=== PATIENT | female | born 1950 | race Caucasian/White ===

== ENCOUNTER 2017-11-16 08:37 | Emergency (ER) | payer BC ==
[~2017-11-16] VITALS: Ht 160 cm; Wt 68.9 kg
[~2017-11-16 08:37] MED LIST: CITALOPRAM HBR20 MG PO; LISINOPRIL-HCT1 EAC1 PO; PREMARIN0.9 MG PO; VASOTEC5 M1 PO
--- NOTE | 2017-11-16 09:53 | Diagnostic Imaging Report ---
RIGHT BONE XRAY - 3 VIEWS HISTORY: \S\DROPPED TV ON HAND YESTERDAY \S\[id number] \S\[id number] COMPARISON: None available. FINDINGS: Bones: No acute displaced fracture. Diffuse bone demineralization. Osseous alignment is within normal limits. Joints: The joint spaces are well-maintained. Soft tissues: The soft tissues appear unremarkable. IMPRESSION: No acute radiographic abnormality. Signed by: Dr. Flaca Quezada M.D. on 11/16/2017 9:49 AM
== END 2017-11-16 10:26 | disposition home or self-care (01) ==
LOC: ER 08:37
DX: S63.632A Sprain of interphalangeal joint of right middle finger, initial encounter (principal); S63.634A Sprain of interphalangeal joint of right ring finger, initial encounter; S63.636A Sprain of interphalangeal joint of right little finger, initial encounter; W22.8XXA Striking against or struck by other objects, initial encounter; Y92.008 Other place in unspecified non-institutional (private) residence as the place of occurrence of the external cause
CPT/HCPCS: 99283

== ENCOUNTER 2019-07-07 14:19 | Emergency (ER) | payer BC ==
[~2019-07-07] VITALS: Ht 160 cm; Wt 68.9 kg
[~2019-07-07 14:19] MED LIST changes: +ASPIR 8181 MG PO
[2019-07-07] MEDS ORDERED: SODIUM CHLORIDE 0.9% 1000ML 1,000 ML IV STA ×2 (14:20)
[2019-07-07] MEDS ORDERED: METOPROLOL TARTRATE 50 MG TAB PO ONE (14:20)
[2019-07-07] MEDS ORDERED: METOPROLOL TARTRATE INJ 1 MG/ML VIAL IV ONE (14:30)
[2019-07-07 14:31] LABS: BASOPHILS # (AUTO) 0.1 (0.0-0.1); BASOPHILS % 0.4 % (0.0-1.0); EOSINOPHILS # (AUTO) 0.1 (0.0-0.4); EOSINOPHILS % 0.8 % (0.0-6.0); HEMATOCRIT 40.2 % (34.2-44.1); LYMPHOCYTES # (AUTO) 3.9 (1.0-3.2); LYMPHOCYTES % 34.7 % (18.0-39.1); MEAN CORPUSCULAR HEMOGLOBIN 28.6 pg (28-32); MEAN CORPUSCULAR HGB CONC 32.3 g/dL (31-35); MEAN CORPUSCULAR VOLUME 88.5 fL (81-99); MONOCYTES # (AUTO) 0.5 (0.2-0.8); MONOCYTES % 4.6 % (4.4-11.3); NEUTROPHILS # (AUTO) 6.6 (2.1-6.9); NEUTROPHILS % 59.1 % (38.7-80.0); PLATELET COUNT 313 x10e3/uL (140-360); RED BLOOD COUNT 4.54 x10e6/uL (3.6-5.1)
[2019-07-07] MEDS ORDERED: ASPIRIN 81 MG CHEW TAB PO ONE (14:45)
[2019-07-07 14:46] LABS: INR 0.82; PARTIAL THROMBOPLASTIN TIME 25.2 seconds (23.8-35.5); PROTHROMBIN TIME 11.8 seconds (11.9-14.5)
[2019-07-07 14:53] LABS: ALANINE AMINOTRANSFERASE 12 IU/L (0-55); ALBUMIN 3.4 g/dL (3.5-5.0); ALBUMIN/GLOBULIN RATIO 0.8 (0.8-2.0); ALKALINE PHOSPHATASE 72 IU/L (40-150); ANION GAP 17.6 mmol/L (8-16); BLOOD UREA NITROGEN 27 mg/dL (7-26); BUN/CREATININE RATIO 20 (6-25); CALCIUM 9.6 mg/dL (8.4-10.2); CARBON DIOXIDE 24 mmol/L (22-29); CHLORIDE 101 mmol/L (98-107); CREATINE KINASE 57 IU/L (29-168); CREATININE, SERUM 1.33 mg/dL (0.57-1.11); EST GLOMERULAR FILTRATION RATE 39 ML/MIN (60-); GLUCOSE 143 mg/dL (74-118); MAGNESIUM 1.7 MG/DL (1.3-2.1); POTASSIUM 3.6 mmol/L (3.5-5.1); SODIUM 139 mmol/L (136-145)
--- NOTE | 2019-07-07 15:11 | Diagnostic Imaging Report ---
Chest, 1 view, 07/07/2019. History: Tachycardia. Comparison: 06/20/2018. Findings: The cardiomediastinal silhouette and pulmonary vasculature are within normal limits for a portable exam. Calcified right hilar lymph node is present. There is no focal consolidation or pleural effusion. Prominence right epicardial fat-pad is noted. There are no acute osseous or soft tissue abnormalities. Impression: No acute cardiopulmonary abnormality. Signed by: Kaushik Veras on 07/07/2019 3:07 PM
[2019-07-07 15:13] LABS: THYROID STIMULATING HORMONE 4.807 uIU/mL (0.350-4.940)
[2019-07-07 15:54] LABS: BILIRUBIN,URINE NEGATIVE (NEGATIVE); CLARITY,URINE SL CLOUDY (CLEAR); COLOR,URINE YELLOW (YELLOW); KETONES,URINE NEGATIVE (NEGATIVE); LEUKOCYTE ESTERASE ,URINE NEGATIVE (NEGATIVE); NITRITE,URINE NEGATIVE (NEGATIVE); PROTEIN,URINE DIPSTICK NEGATIVE (NEGATIVE); URINE UROBILINOGEN 0.2 mg/dL (0.2 - 1)
--- NOTE | 2019-07-07 16:06 | Diagnostic Imaging Report ---
CT of the abdomen and pelvis, without contrast, 07/07/2019. History: History of renal cyst. Comparison: CT chest 06/20/2018. Technique: Multidetector CT scanning of the abdomen and pelvis was performed from the level of the lung bases to the inferior pubic rami without intravenous or oral contrast. Coronal and sagittal multiplanar reformations were obtained. RADIATION DOSE: Total DLP: 314 mGy*cm Dose modulation, iterative reconstruction, and/or weight based adjustment of the mA/kV was utilized to reduce the radiation dose to as low as reasonably achievable. Discussion: Examination is limited without contrast. Lung bases: Calcified granuloma is present in the left lower lobe. Abdomen: A 8.1 cm simple cyst is seen arising from the upper pole of the left kidney. Left kidney is otherwise unremarkable. The liver, gallbladder, biliary tree, spleen, pancreas, adrenal glands, and right kidney are unremarkable. The abdominal aorta is within normal limits. There is no bowel dilatation. Scattered colonic diverticuli are present without evidence of adjacent inflammation. There is no evidence of adenopathy or free fluid. Pelvis: The bladder is are unremarkable. The uterus and adnexa are not visualized. Cavitations are present within the pelvis. There is no evidence of free fluid or adenopathy. Bones and soft tissues: Degenerative changes are present throughout the lumbar spine without evidence of lytic or sclerotic lesion. IMPRESSION: 1. Large simple left renal cyst. 2. Colonic diverticulosis without evidence of diverticulitis. 3. Status post hysterectomy. Signed by: Kaushik Veras on 07/07/2019 4:03 PM
[2019-07-07 16:11] LABS: EPITHELIAL CELLS,URINE RARE /LPF
[2019-07-07 16:28] VITALS: BP 135/75
== END 2019-07-07 16:34 | disposition home or self-care (01) ==
LOC: ER 14:19
DX: I47.1 Supraventricular tachycardia (principal); N28.1 Cyst of kidney, acquired; I10 Essential (primary) hypertension; Z79.82 Long term (current) use of aspirin
CPT/HCPCS: 36415; 71045; 74176; 80053; 81001; 82550; 82553; 83735; 83880; 84443; 84484; 85025; 85610; 85730; 87086; 93005; 99284; J7030

== ENCOUNTER 2020-06-07 09:53 | Observation (INO) | payer BC, MEDICARE, OTHER ==
[~2020-06-07] VITALS: Ht 160 cm; Wt 68.9 kg
--- NOTE | 2020-06-07 10:47 | Emergency Department Note ---
History of Present Illnes History of Present Illness Chief Complaint: Chest Pain History of Present Illness This is a 70 year old female Chief Complaint Comment SHARP, CONSTANT C HEST PAIN OVER LEFT CHEST X 45 MINUTES. 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: Patient Arrival Mode: Car Onset (how long ago): day(s) (1) Location: chest Quality: dull Radiation: Denies non-radiation, Denies back, Denies neck, Denies extremity, Denies abdomen, Denies periumbilical, Denies flank, Denies proximal, Denies distal, Denies other Severity: mild Onset quality: gradual Duration (how long): day(s) (1) Timing of current episode: intermittent Progression: waxing and waning Chronicity: new Context: Denies recent illness, Denies recent surgery, Denies recent immobilization, Denies recent travel, Denies trauma/injury, Denies new medications, Denies hx of DVT/PE, Denies non-compliance w/ medications, Denies other Relieving factors: none Exacerbating factors: none Associated symptoms: Denies denies other symptoms, Denies confusion, Denies chest pain, Denies cough, Denies diaphoresis, Denies fever/chills, Denies headaches, Denies loss of appetite, Denies malaise, Denies nausea/vomiting, Denies rash, Denies seizure, Denies shortness of breath, Denies syncope, Denies weakness, Denies other Treatments prior to arrival: none Past Medical/Family History Physician Review I have reviewed the patient's past medical and family history. Any updates have been documented here. Past Medical History Recent Fever: No Clinical Suspicion of Infectio: No New/Unexplained Change in Ment: No Past Medical History: Hypertension, [place] Other Medical History: DIVERTICULITIS Past Surgical History: Colon Resection Other Surgery: BOWEL RESECTION/DIVERTICULITIS LEFT HAND SURGERY Lt heart cath w/out intervention Social History Smoking Cessation: Never Smoker Alcohol Use: None Any Illegal Drug Use: No Other Last Tetanus: UNK Any Pre-Existing Lines (PICC,: No Review of Systems Review of Systems Constitutional: Reports no symptoms EENTM: Reports no symptoms; Denies as per HPI, Denies eye pain, Denies blurred vision, Denies tearing, Denies double vision, Denies ear pain, Denies ear discharge, Denies nose pain, Denies nose congestion, Denies throat pain, Denies throat swelling, Denies mouth pain, Denies mouth swelling, Denies other Cardiovascular: Reports no symptoms Respiratory: Reports no symptoms; Denies as per HPI, Denies change in phlegm color, Denies chest congestion, Denies cough, Denies hemoptysis, Denies excessive phlegm production, Denies pain on inspiration, Denies pain with cough, Denies dyspnea, Denies dyspnea on exertion, Denies snoring, Denies stridor, Denies wheezing, Denies other Gastrointestinal: Reports no symptoms; Denies as per HPI, Denies abdominal pain, Denies constipation, Denies diarrhea, Denies nausea, Denies vomiting, Denies other Genitourinary: Reports no symptoms; Denies as per HPI, Denies discharge, Denies dysuria, Denies frequency, Denies hematuria, Denies pain, Denies other Musculoskeletal: Reports no symptoms; Denies as per HPI, Denies back pain, Denies gout, Denies joint pain, Denies joint swelling, Denies muscle pain, Denies muscle stiffness, Denies neck pain, Denies other Integumentary: Reports no symptoms; Denies as per HPI, Denies change in color, Denies change in hair/nails, Denies dryness, Denies lesions, Denies lumps, Denies rash, Denies poor turgor, Denies ecchymosis, Denies other Neurological: Reports no symptoms Psychological: Reports no symptoms; Denies as per HPI, Denies anxiety, Denies depressed, Denies emotional pr oblems, Denies other Endocrine: Reports no symptoms; Denies as per HPI, Denies excessive sweating, Denies flushing, Denies intolerance to cold, Denies intolerance to heat, Denies increased hunger, Denies increased thirst, Denies increased urination, Denies unexplained weight gain, Denies unexplained weight loss, Denies other Hematological/Lymphatic: Reports no symptoms Physical Exam Related Data Allergies: Coded Allergies: codeine (Verified Allergy, Mild, 06/20/18) promethazine (Verified Allergy, Mild, 06/20/18) Triage Vital Signs Vital Signs Date Time Temp Pulse Resp B/P (MAP) Pulse Ox O2 Delivery O2 Flow Rate FiO2 06/07/20 10:05 97.2 72 16 172/73 95 Room Air Vital signs reviewed: Yes Physical Exam CONSTITUTIONAL Constitutional: Present well-developed, Present well-nourished HENT HENT: Present normocephalic, Present atraumatic, Present oropharynx clear/moist, Present nose normal HENT L/R: Present left ext ear normal, Present right ext ear normal EYES Eyes: Reports PERRL, Reports conjunctivae normal NECK Neck: Present ROM normal PULMONARY Pulmonary: Present effort normal, Present breath sounds normal CARDIOVASCULAR Cardiovascular: Present regular rhythm, Present heart sounds normal, Present capillary refill normal, Present normal rate GASTROINTESTINAL Abdominal: Present soft, Present nontender, Present bowel sounds normal GENITOURINARY Genitourinary: Present exam deferred SKIN Skin: Present warm, Present dry MUSCULOSKELETAL Musculoskeletal: Present ROM normal NEUROLOGICAL Neurological: Present alert, Present oriented x 3, Present no gross motor or sensory deficits PSYCHOLOGICAL Psychological: Present mood/affect normal, Present judgement normal Results Laboratory Lab results reviewed: Yes Imaging Imaging results reviewed: Yes Procedures 12 Lead ECG Interpretation ECG Interpretation : ECG: ECG 1 Accounting Supervisor: Interpreted by ED physician Date: Jun 07, 2020 Time: 09:53 Prior ECG tracings: not available for review Rhythm: sinus rhythm Rate: normal BPM: 73 QRS axis: normal ST segments normal: Yes T wave inversion: II, III, aVF Clinical Impression: abnormal ECG Assessment & Plan Medical Decision Making MDM cad angina acs Reassessment Reassessment time: 10:46 Reassessment better Assessment & Plan Final Impression: (1) Precordial pain (2) Chest pain Depart Disposition: ADMITTED Last Vital Signs Date Time Temp Pulse Resp B/P (MAP) Pulse Ox O2 Delivery O2 Flow Rate FiO2 06/07/20 10:05 97.2 72 16 172/73 95 Room Air Home Meds Reported Medications Aspirin (ASPIR 81) 81 Mg Tablet., PO DAILY 06/21/18 Estrogens, Conjugated (PREMARIN) 0.9 Mg Tablet, 0.9 MG PO HS 01/10/14 Lisinopril/Hydrochlorothiazide (LISINOPRIL-HCTZ 20-25 MG TAB) 1 Each Tablet, 0.5 TAB PO HS 01/10/14 DENISE SCOTT MD Jun 07, 2020 10:47
--- NOTE | 2020-06-07 10:49 | Diagnostic Imaging Report ---
EXAM: CXR 1 VIEW - [facility] DATE: 06/07/2020 10:24 AM INDICATION: Chest pain COMPARISON: 07/07/2019 FINDINGS: The trachea is midline. The lungs are symmetrically expanded without evidence for large focal consolidation, pneumothorax, or significant pleural effusion. The cardiomediastinal silhouette and pulmonary vasculature are within normal limits. No acute osseous abnormality is identified. The surrounding soft tissues are unremarkable. IMPRESSION: No acute cardiopulmonary process identified. Signed by: Dr. Geovanny Kelley MD on 06/07/2020 10:46 AM
[2020-06-07] MEDS ORDERED: ONDANSETRON HCL INJ 2MG/ML 2ML 2 MG/ML VIAL IV PRN (11:00)
[2020-06-07] MEDS ORDERED: ASPIRIN 81 MG CHEW TAB PO ONE (11:00)
--- NOTE | 2020-06-07 11:17 | NUR ---
[facility] CALLED TO TRANSPORT TO [id number] EMS ETA 30-45MIN
[2020-06-07] MEDS ORDERED: ACETAMINOPHEN 325 MG TAB PO PRN (13:00)
[2020-06-07] MEDS ORDERED: SODIUM CHLORIDE 0.9% 1000ML 1,000 ML IV ONE (13:30)
[2020-06-07] MEDS ORDERED: SODIUM CHLORIDE 0.9% 100 ML ONE (13:47)
[2020-06-07] MEDS ORDERED: IOPAMIDOL 370 MG/ML 200 ML INFUS..BTL INJ ONE (13:47)
--- NOTE | 2020-06-07 14:28 | NUR ---
Received patient from [facility] via EMS on a stretcher at 1220. Received report from SAIRA Epperson at 1222. Patient oriented to room, procedures, and plan of care. Patient IV in right AC 20g. Patient has no pain. Patient has significant other at bedside. Patient was seen by Dr. Bains who ordered labs and scans. Patient assessed and has no other issues or complaints.
[2020-06-07 14:32] LABS: CREATINE KINASE 47 IU/L (29-168)
[2020-06-07] MEDS ORDERED: ESTRADIOL1 MG PO (14:37)
[2020-06-07 14:52] LABS: THYROID STIMULATING HORMONE 4.034 uIU/mL (0.350-4.940)
[2020-06-07] MEDS ORDERED: ASPIRIN 81 MG CHEW TAB ONE (15:03)
--- NOTE | 2020-06-07 15:22 | Diagnostic Imaging Report ---
CTA of the chest History: Chest pain. Comparison: CT chest with contrast from 06/20/2018. Technique: Multidetector CT scanning of the chest was performed from the level of the apices to the upper abdomen before and after intravenous administration of intravenous contrast according to the CTA protocol. Coronal and sagittal multiplanar reformations as well as three-dimensional reformations of the aorta were obtained. RADIATION DOSE: Total DLP: 487.64 mGy*cm Dose modulation, iterative reconstruction, and/or weight based adjustment of the mA/kV was utilized to reduce the radiation dose to as low as reasonably achievable. FINDINGS: Vascular: The thoracic aorta is normal in course and caliber without evidence for acute pathology such as dissection, intramural hematoma, or contained rupture. Arch vessel branching pattern is conventional. The origins of the brachiocephalic, left common carotid, and left subclavian arteries are widely patent. The origins of the vertebral arteries off the subclavian arteries are patent. The main pulmonary artery is normal in caliber and distributes normally. The visualized abdominal aorta and branch vessels are unremarkable. Tipple Engineer maximum AP dimensions of the thoracic aorta are as follows: -2.9 cm at the aortic annulus. -3.4 cm within the proximal ascending thoracic aorta. -3.0 cm within the distal ascending thoracic aorta. - 2.6 cm within the proximal descending thoracic aorta. - 2.5 cm within the mid descending thoracic aorta. - 2.3 cm at the level of the diaphragmatic hiatus. Nonvascular: The thyroid and remaining midline structures within the base of the neck demonstrate no significant abnormalities. The heart is not enlarged. No abnormal pericardial fluid is present. Calcified mediastinal and hilar lymph nodes are noted suggestive of prior granulomatous disease. There is no abnormal axillary, mediastinal, or hilar lymph node enlargement. The trachea and proximal airways are patent. Stable calcified granulomas noted within the lung parenchyma bilaterally. There is no evidence for consolidation, pneumothorax, mass, suspicious nodule, or pleural effusion. Limited views of the upper abdominal contents demonstrate partially visualized left renal cyst, bettered evaluated on prior CT abdomen/pelvis examinations. The osseous structures demonstrate no evidence for acute fracture or destructive process. The extrathoracic soft tissues are unremarkable. IMPRESSION: Unremarkable CTA of the chest without evidence for aortic dissection, aneurysm, or other acute aortic pathology. No other acute intrathoracic process identified. Evidence of prior granulomatous disease. Signed by: Dr. Geovanny Kelley MD on 06/07/2020 3:19 PM
[2020-06-07 16:26] VITALS: BP 140/66
--- NOTE | 2020-06-07 18:09 | Consultation ---
DATE OF CONSULTATION: 06/07/2020 Cardiology consultation REASON FOR CONSULTATION: Chest pain. HISTORY OF PRESENT ILLNESS: Ms. Toribio is a 70-year-old lady, well known to us with past medical history of prior SVT, status post SVT ablation six months ago with and also prior history of takotsubo cardiomyopathy x2 before in the past. She has had cardiac catheterizations in the past showing angiographically normal coronary arteries. She was in her usual state of health up until earlier today. She developed an episode of chest pain. She describes it as a left parasternal chest discomfort quarter-size radiating straight to the back and in between the shoulder blades. She describes the pain as sharp, relentless, constant, no waxing and waning features, no alleviating factors. She felt overall malaise and after it lasting for an hour and a half, she became concerned and decided to come to the emergency room for further care and management. In the emergency room, her EKG reveals sinus rhythm, delayed R to S wave transition, but no ST-T wave changes concerning for ischemia. Her pain is largely subsided, but still has a low level of discomfort. The patient denies any shortness of breath. She denies any pleuritic component to the chest pain. She denies any wheezing or coughing. She had a little bit of diaphoresis earlier. We ended up reviewing the chest x-ray which revealed normal extra x-ray. Cardiac biomarkers at the freestanding ER are strongly negative x1. Overall, the patient reports three months ago she had an episode of two days of low-grade fevers, body aches and some nausea and vomiting, and at that time she was tested for COVID infection and was negative. She denies any recurrence of those types of complaints. At baseline she is able to walk a mile a day. It has not been changing much, but on occasion does have exertional dyspnea. Long discussion and visit today discussing of various differential diagnosis. PAST MEDICAL HISTORY: 1. History of takotsubo cardiomyopathy x2. 2. Prior history of cardiac catheterizations which have been normal, most recently 2013. 3. History of SVT, status post SVT ablation in 2019 by . 4. Prior history of endometriosis. PAST SURGICAL HISTORY: 1. History of hysterectomy. 2. History of left knee surgery. FAMILY HISTORY: There are several family members with history of coronary artery disease. SOCIAL HISTORY: She is a nurse. She is a nonsmoker. Denies any alcohol or illicit drug use. ALLERGIES: CODEINE AND PROMETHAZINE. CURRENT MEDICATIONS: 1. Aspirin 81 mg daily. 2. Lisinopril/HCTZ 20/25 mg half a tablet daily, however, does report in recent history has decreased. 3. Estrogen 0.9 mg p.o. at bedtime. REVIEW OF SYSTEMS: GENERAL: Denies any fevers, chills, or any weight changes. HEENT: No headaches, visual complaints, sore throat, or stuffy nose. RESPIRATORY: Denies any pleuritic component to the chest pain, but does have chest pain as noted as per HPI. Has no dyspnea at the present time. CARDIOVASCULAR: As per HPI. Denies any subjective palpitations, syncope, or near syncope. GI: Denies any abdominal pain, bright red blood per rectum, melena, hematemesis, nausea, or vomiting. : Denies any dysuria, pyuria, or change in urine frequency. MUSCULOSKELETAL: Denies any body aches, muscle pains, or weakness. ENDOCRINE: Denies any heat or cold intolerance. NEUROLOGIC: Denies any focal weakness, numbness, tingling, seizures, headache, TIA or stroke. Remainder review of systems negative otherwise mentioned. PHYSICAL EXAMINATION: VITAL SIGNS: Height of 63 inches, weight of 152 pounds. BMI is 26.9, temperature of 97.2, pulse of 59, respiratory rate of 16, blood pressure 152/69, and O2 saturation 97% on room air. GENERAL: This is a well-nourished, well-developed lady, who is currently in no apparent distress. HEENT: Normocephalic and atraumatic. Pupils are equal, round, reactive to light. Extraocular motors are intact. Oropharynx is clear. NECK: No elevation in jugular venous pulsation. No carotid bruits. CARDIOVASCULAR: Regular rate and rhythm. Normal S1, S2. 1/6 systolic murmur at the left lower sternal border. LUNGS: Clear to auscultation bilaterally with good air entry. There is no chest wall tenderness to palpation. ABDOMEN: Soft, nontender, nondistended. Normoactive bowel sounds. No hepatosplenomegaly. BACK: No costovertebral angle tenderness. EXTREMITIES: Warm with 1 to 2+ bilateral femoral pulses, 1 to 2+ bilateral pedal pulses and radial pulses. No edema. NEUROLOGIC: Cranial nerves II through XII are intact. Strength grossly nonfocal. PSYCH: Normal fluent speech, appropriate affect. No anxiety or delusions. LABORATORY DATA: Sodium 139, potassium 3.6, chloride 101, bicarb 24, BUN 20, creatinine 0.9, glucose of 101, calcium of 9.8, AST 16, ALT 31, alkaline phosphatase 67, total bilirubin 0.7, total protein 7.1, and albumin 4.1. Troponin is less than 0.05. CK-MB is 1.3. Chest x-ray is unremarkable. EKG reveals sinus rhythm, delayed R-S wave transition and no ST-T wave changes concerning for ischemia. DIAGNOSES: 1. Chest pain with largely atypical feature for angina in nature. 2. Hypertension. 3. History of takotsubo cardiomyopathy. PLAN/RECOMMENDATIONS: 1. From a cardiovascular standpoint, we will continue low dose aspirin therapy. 2. In light of her potential coronavirus disease infection in the past back about three months ago this made predispose her to hypercoagulable state. Therefore, we will take ordering a CTA of the chest for further evaluation. This is beneficial as we can rule out aortic dissection and PE, which are the most highest two things in the differential diagnosis and the differential could be pleurisy or musculoskeletal chest pain. 3. Aggressive risk factor modification medical therapy. 4. We will monitor on telemetry. 5. We will check echo and to evaluate her left ventricular function as she has had previous takotsubo events in the past with very weird presentations. We will make sure this is not a manifestation of such. 6. We will cycle at least one more set of cardiac enzymes to rule out NH. MD MYRIAM Singleton/CHAYAL /[id number]
--- NOTE | 2020-06-07 18:55 | NUR ---
Bedside report received from morning nurse. Pt alert and oriented to name, lying in bed HIB 60 degrees, denies pain at this time. Call light within reach. Bed low and locked. Pt goal is to rest, refuses midnight vitals.
[2020-06-07 20:00] VITALS: BP 117/66
[2020-06-07 21:40] LABS: CREATINE KINASE MB 1.2 ng/mL (0-5.0)
[2020-06-08 04:00] VITALS: BP 135/57
[2020-06-08] MEDS ORDERED: KETOROLAC TROMETHAMINE 30 MG/ML VIAL IV STA (05:13)
[2020-06-08 05:14] VITALS: BP 135/57
[2020-06-08 05:28] LABS: BASOPHILS # (AUTO) 0.1 (0.0-0.1); BASOPHILS % 1.4 % (0.0-1.0); EOSINOPHILS # (AUTO) 0.2 (0.0-0.4); EOSINOPHILS % 4.3 % (0.0-6.0); HEMATOCRIT 35.9 % (34.2-44.1); HEMOGLOBIN 11.6 g/dL (12.0-16.0); LYMPHOCYTES # (AUTO) 1.8 (1.0-3.2); LYMPHOCYTES % 42.7 % (18.0-39.1); MEAN CORPUSCULAR HEMOGLOBIN 28.6 pg (28-32); MEAN CORPUSCULAR HGB CONC 32.3 g/dL (31-35); MEAN CORPUSCULAR VOLUME 88.4 fL (81-99); MONOCYTES # (AUTO) 0.4 (0.2-0.8); MONOCYTES % 9.2 % (4.4-11.3); NEUTROPHILS # (AUTO) 1.8 (2.1-6.9); NEUTROPHILS % 42.2 % (38.7-80.0); PLATELET COUNT 208 x10e3/uL (140-360); RED BLOOD COUNT 4.06 x10e6/uL (3.6-5.1); RED CELL DISTRIBUTION WIDTH 13.2 % (11.7-14.4)
[2020-06-08 06:03] LABS: BLOOD UREA NITROGEN 17 mg/dL (7-26); BUN/CREATININE RATIO 21 (6-25); CALCIUM 8.7 mg/dL (8.4-10.2); CARBON DIOXIDE 23 mmol/L (22-29); CHLORIDE 108 mmol/L (98-107); CREATININE, SERUM 0.82 mg/dL (0.57-1.11); EST GLOMERULAR FILTRATION RATE > 60 ML/MIN (60-); GLUCOSE 85 mg/dL (74-118); SODIUM 138 mmol/L (136-145)
[2020-06-08 06:19] LABS: CREATINE KINASE 50 IU/L (29-168)
[2020-06-08 06:53] LABS: CHOL/HDL RATIO 2.8 (3.0-3.6); MAGNESIUM 1.8 MG/DL (1.3-2.1)
--- NOTE | 2020-06-08 08:00 | NUR ---
ASSUMED CARE. AAOX3. ACYANOTIC. PATIENT RESTING IN BED WITH HOB ELEVATED. NO DISTRESS NOTED. CALL LIGHT IN REACH. SIDE RAILS UP X2. BED LOW AND LOCKED. PATIENT DENIES PAIN AT THIS TIME.
[2020-06-08 08:38] VITALS: BP 133/69
[2020-06-08] MEDS ORDERED: ASPIRIN 325 MG TAB EC PO SCH (09:00)
[2020-06-08 09:53] VITALS: BP 133/69
[2020-06-08] MEDS ORDERED: ONDANSETRON HCL 4 MG ORAL DISINTEGRATING TAB PO PRN (11:45)
--- NOTE | 2020-06-09 09:59 | Discharge Summary ---
DISCHARGE DIAGNOSES: 1. Chest pain, rule out myocardial infarction. 2. Hypertension. HISTORY OF PRESENT ILLNESS: The patient is a lady, who presented with left-sided chest pain only when lying on the left lateral decubitus position, but since she has a history of heart disease, she presented to the emergency room, where she did rule out for AR by enzymes, EKGs, and cardiac echo was unremarkable. She was seen by Dr. Bains and due to the positional component Toradol, which completely resolved her pain. Therefore, inflammatory response at that point since her cardiac workup was negative and she felt great she wanted to go home. So, the patient was discharged home to follow up with me in 1 to 2 weeks. Please see hospital chart for full details. MD GIULIANO Fontenot/TELLO /[id number]
--- OUTSIDE RECORDS SUMMARY | 2020-06-15 17:24 | XMS REPORT | Continuity of Care Document ---
Author Author [facility] t Organization [facility] Address [address] [place] [address] Phone Unavailable Care Team Providers Care Planning Coordinator Name Role Phone HUYEN MURO, MD GARCIA PCP RADHA MATSON Attphys Unavailable YOLI ALVARENGA Attphys Unavailable Loi SHELTON Attphys Unavailable Betty RAE Attphys Unavailable RADHA MATSON Admphys Unavailable Loi SHELTON Admphys Unavailable Payers Payer Name Policy Type Policy Number Effective Date Expiration Date Loi Beyer [facility] [id number] 2013 [facility] [id number] 2013 00:00:00 [facility] Problems Condition Name Condition Details Condition Category Status Onset Date Resolution Date Last Treatment Date Treating Clinician Comments Source Chest pain Chest pain Problem Active [facility] Precordial pain Problem Active [facility] Allergies, Adverse Reactions, Alerts Allergy Name Allergy Type Status Severity Reaction(s) Onset Date Inacti ve Date Treating Clinician Comments Source No Known Allergies DA Active U 2019-08-12 00:00:00 [facility] Codeine Allergy to substance Active Mild 2018-06-20 00:00:00 [facility] Promethazine Allergy to substance Active Mild 2018-06-20 00:00:0 0 [facility] No Known Contrast Allergies DA Active U 2003-10-04 00:00: 00 [facility] No Known Drug Allergies DA Active U 2003-10-04 00:00:00 [facility] No Known Food Allergies DA Active U 2003-10-04 00:00:00 [facility] No Known Other Allergies DA Active U 2003-10-04 00:00:00 [facility] Social History Social Habit Start Date Stop Date Quantity Comments Source Sex Assigned At 1950 00:00:00 1950 00[birth year]:00 Female [facility] Medications Ordered Medication Name Filled Medication Name Start Date Stop Da te Current Medication? Ordering Clinician Indication Dosage Frequency Signature (SIG) Comments Components Source Estradiol Estradiol Yes 1 Daily [facility] Aspirin (Aspir 81) 81 Mg TABLET. Aspirin (Aspir 81) 81 Mg VANDANA ET 2020-06-07 00:00:00 No Daily [facility] Estrogens, Conjugated (Premarin) 0.9 Mg TABLET Estroge ns, Conjugated (Premarin) 0.9 Mg TABLET 2020-06-07 00:00:00 No .9 Bedtime [facility] Lisinopril/Hydrochlorothiazide (Lisinopril-Hctz 20-25 Mg Tab) 1 Each TABLET Lisinopril/Hydrochlorothiazide (Lisinopril-Hctz 20-25 Mg Tab) 1 Each TABLET 2020-06-07 00:00:00 No .5 Bedtime [facility] Citalopram Hydrobromide (Citalopram Hbr) 20 Mg TABLET Citalopram Hydrobromide (Citalopram Hbr) 20 Mg TABLET 2018-06-20 00:00:00 No 20 Daily [facility] Enalapril Maleate (Vasotec) 5 Mg TABLET Enalapril Maleate (V asotec) 5 Mg TABLET 2018-06-20 00:00:00 No 5 Daily [facility] Vital Signs Vital Name Observation Time Observation Value Comments Source Body Temperature 2020-06-08 10:53:00 97.9 [degF] [facility] Heart Rate 2020-06-08 10:53:00 66 /min [facility] Respiratory rate 2020-06-08 10:53:00 18 /min [facility] BP Systolic 2020-06-08 10:53:00 133 mm[Hg] [facility] BP Diastolic 2020-06-08 10:53:00 69 mm[Hg] [facility] Oxygen saturation by Pulse oximetry 2020-06-08 10:53:00 100 /min [facility] BMI (Body Mass Index) 2020-06-07 13:26:00 26.9 kg/m2 [facility] Weight 2020-06-07 11:05:00 152 [lb_av] [facility] Procedures Procedure Date / Time Performed Performing Clinician [facility] donta CT angiography of chest 2020-06-07 00:00:00 [facility] Plan of Care Planned Activity Planned Date Details Comments Source Instructions How to Take Your Blood Pressure [facility] Instructions Chest Pain - Noncardiac [facility] Instructions Chest Pain - Chest Wall [facility] Instructions Cardiac Disease Risk Factors [facility] Encounters Start Date/Time End Date/Time [facility] Source 2020-06-07 11:51:00 2020-06-08 13:17:00 Discharged Inpatient (obs) 1 RADHA MATSON [facility] [id number] [facility] 2019-07-07 14:19:00 2019-07-07 16:34:00 Departed Emergency Room 1 YOLI ALVARENGA [facility] [id number] [facility] 2017-11-16 08:37:00 2017-11-16 10:26:00 Departed Emergency Room ER KYRAASHLEY [facility] [id number] [facility] Results Test Description Test Time Test Comments Results Result Comments Source Blood leukocytes automated count (number/volume) 2020-06-08 06:22:00 Test Item White Blood Count (test code = 6690-2) 4.15 10*3/uL 4.8-10.8 [facility] automated count (number/volume)2020-06-08 06:22:00* Test Item Value Reference Range Interpretation Comments Red Blood Count (test code = 789-8) 4.06 10*6/mL 3.6-5.1 [facility] hemoglobin measurement (moles/volume)2020-06-08 06:22:00* Test Item Value Reference Range Interpretation Comments Hemoglobin (test code = 32328-3) 11.6 g/dL 12.0-16.0 [facility] blood hematocrit (volume fraction)2020-06-08 06:22:00* Test Item Value Reference Range Interpretation Comments Hematocrit (test code = 4544-3) 35.9 % 34.2-44.1 [facility] erythrocyte mean corpuscular [id number] 06:22:00* Test Item Value Reference Range Interpretation Comments Mean Corpuscular Volume (test code = 787-2) 88.4 81-99 [facility] erythrocyte mean corpuscular hemoglobin (mass per erythrocyte)2020-06-08 06:22:00* Test Item Value Reference Range Interpretation Comments Mean Corpuscular Hemoglobin (test code = 785-6) 28.6 pg 28-32 [facility] CampusAutom[facility] erythrocyte mean corpuscular hemoglobin concentration measurement (mass/volume)2020-06-08 06:22:00* Test Item Value Reference Range Interpretation Comments Mean Corpuscular Hemoglobin Concent (test code = 786-4) 32.3 g/dL 31-35 [facility] CampusRDW [id number]-[id number] 06:22:00* Test Item Value Reference Range Interpretation Comments Red Cell Distribution Width (test code = 02942-9) 13.2 % 11.7 -14.4 [facility] Campus[facility] blood platelet count (count/volume)2020-06-08 06:22:00* Test Item Value Reference Range Interpretation Comments Platelet Count (test code = 777-3) 208 10*3/uL 140-360 [facility] Campus[facility] blood segmented neutrophil count as percentage of total gengeeogmc5762-34-41 06:22:00* Test Item Value Reference Range Interpretation Comments Neutrophils (%) (Auto) (test code = 66466-0) 42.2 % 38.7-80.0 [facility] CampusAutomated blood lymphocyte count as percentage ot total jzjztmvirs9903-19-69 06:22:00* Test Item Value Reference Range Interpretation Comments Lymphocytes (%) (Auto) (test code = 736-9) 42.7 % 18.0-39.1 [facility] Campus[facility] blood monocyte count as percentage of total jdzfdxngai5809-57-59 06:22:00* Test Item Value Reference Range Interpretation Comments Monocytes (%) (Auto) (test code = 5905-5) 9.2 % 4.4-11.3 [facility] CampusAutom[facility] blood eosinophil count as percentage of total ssqziznqjw3641-14-27 06:22:00* Test Item Value Reference Range Interpretation Comments Eosinophils (%) (Auto) (test code = 713-8) 4.3 % 0.0-6.0 [facility] CampusAutom[facility] blood basophil count as percentage of total mjouuqdzbr7381-63-68 06:22:00* Test Item Value Reference Range Interpretation Comments Basophils (%) (Auto) (test code = 706-2) 1.4 % 0.0-1.0 [facility] CampusFluoroscopic procedure less than one hour alinunej8473-97-76 06:22:00* Test Item Value Reference Range Interpretation Comments IM GRANULOCYTES % (test code = IM GRANULOCYTES %) 0.2 % 0.0- 1.0 [facility] CampusAutomated blood neutrophil count 2020-06-08 06:22:00* Test Item Value Reference Range Interpretation Comments Neutrophils # (Auto) (test code = 751-8) 1.8 2.1-6.9 [facility] lymphocytes count (number/volume) 2020-06-08 06:22:00* Test Item Value Reference Range Interpretation Comments Lymphocytes # (Auto) (test code = 31373-0) 1.8 1.0-3.2 [facility]Blood monocytes automated count (number/volume)2020-06-08 06:22:00* Test Item Value Reference Range Interpretation Comments Monocytes # (Auto) (test code = 742-7) 0.4 0.2-0.8 [facility] CampusAutomated blood eosinophil count 2020-06-08 06:22:00* Test Item Value Reference Range Interpretation Comments Eosinophils # (Auto) (test code = 711-2) 0.2 0.0-0.4 [facility] CampusAutomated blood basophil count (count/volume)2020-06-08 06:22:00* Test Item Value Reference Range Interpretation Comments Basophils # (Auto) (test code = 704-7) 0.1 0.0-0.1 [facility] CampusFluoroscopic procedure less than one hour hhgymiul6160-47-24 06:22:00* Test Item Value Reference Range Interpretation Comments Absolute Immature Granulocyte (auto (gennaro t code = Absolute Immature Granulocyte (auto) 0.01 10*3/uL 0-0.1 [facility] sodium measurement (moles/volume)2020-06-08 06:22:00* Test Item Value Reference Range Interpretation Comments Sodium Level (test code = 2951-2) 138 mmol/L 136-145 [facility] plasma potassium measurement (moles/volume)2020-06-08 06:22:00* Test Item Value Reference Range Interpretation Comments Potassium Level (test code = 2823-3) 4.0 mmol/L 3.5-5.1 [facility] chloride measurement (moles/volume)2020-06-08 06:22:00* Test Item Value Reference Range Interpretation Comments Chloride Level (test code = 2075-0) 108 mmol/L 98-107 [facility] plasma carbon dioxide, total measurement (moles/volume)2020-06-08 06:22:00* Test Item Value Reference Range Interpretation Comments Carbon Dioxide Level (test code = 2028-9) 23 mmol/L [facility] plasma anion bty4851-64-72 06:22:00* Test Item Value Reference Range Interpretation Comments Anion Gap (test code = 02731-7) 11.0 mmol/L 8- [facility] plasma urea nitrogen measurement (mass/volume)2020-06-08 06:22:00* Test Item Value Reference Range Interpretation Comments Blood Urea Nitrogen (test code = 3094-0) 17 mg/dL - [facility] plasma creatinine measurement (mass/volume)2020-06-08 06:22:00* Test Item Value Reference Range Interpretation Comments Creatinine (test code = 2160-0) 0.82 mg/dL 0.57-1.11 [facility] plasma urea nitrogen/creatinine mass cyegf3056-46-12 06:22:00* Test Item Value Reference Range Interpretation Comments BUN/Creatinine Ratio (test code = 3097-3) 21 6- [facility] CampusEstimated glomerular filtration rate (GFR) xqvyykmwxhmka9268-91-87 06:22:00* Test Item Value Reference Range Interpretation Comments Estimat Glomerular Filtration Rate (test code = 328311051) > 60 mL/ min >60 Ranges were taken from the National Kidney Disease Education Program and the [facility] literature.Reference ranges:60 or greater: Yrpqxm87-22 ( for 3 consecutive months): Chronic kidney disease 15 or less: Kidney failureThe Hospitals of Providence Sierra CampusGlucose uvfjcurmksu0067-05-35 06:22:00* Test Item Value Reference Range Interpretation Comments Glucose Level (test code = AZS4392) 85 mg/dL 74-118 [facility] plasma calcium measurement (mass/volume)2020-06-08 06:22:00* Test Item Value Reference Range Interpretation Comments Calcium Level (test code = 29697-8) 8.7 mg/dL 8.4-10.2 [facility] plasma magnesium measurement (mass/volume)2020-06-08 06:22:00* Test Item Value Reference Range Interpretation Comments Magnesium Level (test code = 49576-8) 1.8 mg/dL 1.3-2.1 [facility] plasma triglyceride measurement (mass/volume)2020-06-08 06:22:00* Test Item Value Reference Range Interpretation Comments Triglycerides Level (test code = 2571-8) 93 mg/dL 0-149 [facility] or plasma cholesterol measurement (mass/volume)2020-06-08 06:22:00* Test Item Value Reference Range Interpretation Comments Cholesterol Level (test code = 2093-3) 200 mg/dL 0-199 Less than 200 mg/dL Low Fbgu873 - 239 mg/dL Borderline Aqhw106 m g/dl and greater High Risk [facility] or plasma cholesterol in LDL measurement (mass/volume) 2020-06-08 06:22:00* Test Item Value Reference Range Interpretation Comments LDL Cholesterol (test code = 2089-1) 110 mg/dL 60-130 [facility] plasma cholesterol in HDL measurement (mass/volume)2020-06-08 06:22:00* Test Item Value Reference Range Interpretation Comments HDL Cholesterol (test code = 2085-9) 71 mg/dL 40-60 [facility] or plasma total cholesterol/cholesterol in HDL mass tpbru4240-19-18 06:22:00* Test Item Value Reference Range Interpretation Comments Cholesterol/HDL Ratio (test code = 9830-1) 2.8 3.0-3.6 [facility] or plasma creatine kinase measurement (enzymatic activity/volume)2020-06-08 06:22:00* Test Item Value Reference Range Interpretation Comments Creatine Kinase (test code = 2157-6) 50 [IU]/L 29-168 [facility] or plasma creatine kinase MB measurement (mass/volume)2020-06-08 06:22:00* Test Item Value Reference Range Interpretation Comments Creatine Kinase MB (test code = 93235-8) 1.20 ng/mL 0-5.0 [facility] CampusTroponin I measurement by highly sensitive enzyme mpzrogogjkz8733-71-27 06:22:00* Test Item Value Reference Range Interpretation Comments Troponin I (test code = 80166-8) < 0.001 ng/mL 0-0.300 [facility] CampusCTA [id number] 15:07:00 [facility] 1950 Sex: F [facility] [address] [address] Patient Name: GABO INGRAM MR #: [id number] : 1950 Age/Sex: 70/F Req #: [id number] [facility] Physician: RADHA MATSON MD Ord ered by: SERGE LEWIS MD Report #: [id number] Location: MED/SURG Room/Bed: [facility] __ Procedure: [id number] CT/CTA CHEST Exam Date: 06/07/20 Exam Time: 1403 REPORT STATUS: Signed CTA of the chest History: Chest pain. Com parison: CT chest with contrast from 06/20/2018. Technique: Multidetector C T scanning of the chest was performed from the level of the apices to the uppe r abdomen before and after intravenous administration of intravenous contrast according to the CTA protocol. Coronal and sagittal multiplanar reformations as well as three-dimensional reformations of the aorta were obtained. RAD IATION DOSE: Total DLP: 487.64 mGy*cm Dose modulation, iterative r econstruction, and/or weight based adjustment of the mA/kV was utilized to red uce the radiation dose to as low as reasonably achievable. FINDINGS: Vascular: The thoracic aorta is normal in course and caliber without eviden ce for acute pathology such as dissection, intramural hematoma, or contained r upture. Arch vessel branching pattern is conventional. The origins of the brac hiocephalic, left common carotid, and left subclavian arteries are widely león nt. The origins of the vertebral arteries off the subclavian arteries are león nt. The main pulmonary artery is normal in caliber and distributes normally. T he visualized abdominal aorta and branch vessels are unremarkable. Repres entative maximum AP dimensions of the thoracic aorta are as follows: -2.9 cm a t the aortic annulus. -3.4 cm within the proximal ascending thoracic aorta. -3.0 cm within the distal ascending thoracic aorta. - 2.6 cm within the proxim al descending thoracic aorta. - 2.5 cm within the mid descending thoracic aort a. - 2.3 cm at the level of the diaphragmatic hiatus. Nonvascular: The thyroid and remaining midline structures within the base of the neck demonstra te no significant abnormalities. The heart is not enlarged. No abnormal per icardial fluid is present. Calcified mediastinal and hilar lymph nodes are not ed suggestive of prior granulomatous disease. There is no abnormal axillary, m ediastinal, or hilar lymph node enlargement. The trachea and proximal air ways are patent. Stable calcified granulomas noted within the lung parenchyma bilaterally. There is no evidence for consolidation, pneumothorax, mass, suspi cious nodule, or pleural effusion. Limited views of the upper abdominal con tents demonstrate partially visualized left renal cyst, bettered evaluated on prior CT abdomen/pelvis examinations. The osseous structures demonstrate no evidence for acute fracture or destructive process. The extrathoracic soft ti ssues are unremarkable. IMPRESSION: Unremarkable CTA of the chest w ithout evidence for aortic dissection, aneurysm, or other acute aortic patholo gy. No other acute intrathoracic process identified. Evidence of prior granulomatous disease. Signed by: Dr. Geovanny Kelley MD on 06/07/2020 3:19 PM Dictated By: GEOVANNY KELLEY MD 18 Transcribed By: VINH on 06/07/201518 COPY TO: SERGE TYLER MD Serum or plasma amylase measurement (enzymatic activity/volume)2020-06-07 14:45:00* Test Item Value Reference Range Interpretation Comments Amylase Level (test code = 1798-8) 39 U/L 25-125 [facility] plasma lipase measurement (enzymatic activity/volume)2020-06-07 14:45:00* Test Item Value Reference Range Interpretation Comments Lipase (test code = 3040-3) 25 U/L 8-78 [facility] or plasma thyrotropin measurement by detection limit <= 0.005 miu/l (units/volume)2020-06-07 14:45:00* Test Item Value Reference Range Interpretation Comments Thyroid Stimulating Hormone (TSH) (test code = 37526-0) 4.034 0.350-4.940 [facility] CampusFluoroscopic procedure less than one hour [id number] 12:00:00* Test Item Value Reference Range Interpretation Comments Coronavirus (PCR) (test code = Coronavirus (PCR)) NOT DETECTED NOTD ETECTED SARS-CoV-2 PCRHologic Aptima SARS-CoV-2 assay is a nucleic amplification test in tended for the qualitative detection of RNA from SARS-CoV-2 from nasopharyngeal (DATABASE PROGRAMMER ANALYST) specimens. It is used under Emergency Use Authorization (EUA) by FDA.A posi tive result is indicative of the presence of SARS-CoV-2 RNA. Clinical correlatio n with patient history and other diagnostic information is necessary to determin e patient infection status.A negative (Not Detected) result does not preclude SA RS-CoV-2 infection. Clinical Correlation with patient history and other diagnost ic information should be used in patient management decisions.Invalid: Unable to generate a valid result on this specimen. Please submit a new specimen for repr at testing oc clinically indicated.Tesing performed by:[facility] Laboratory Services[address] [place] [address] [id number], Rolando nieves MD, PhDThe Hospitals of [facility] CampusCXR 1 VEW - [id number] 10:45:00[facility] 1950 Sex: F [address] [address] Patient Name: GABO INGRAM MR #: [id number] : 1950 Age/Sex: 70/F Req #: [id number] Adm Physician: Ordered by: DENISE SCOTT MD Report #: [id number] Location: [facility] Room/Bed: __ Procedure: [id number] HOPD/CXR 1 VEW - HOPD Exam Date: 05/12 03/30 Exam Time: 1037 REPORT STATUS: Signed EXAM: CXR 1 VIEW - HOPD DATE: 2019 10:24 AM INDICATION: Chest pain COMPARISON: 07/07/2019 FI NDINGS: The trachea is midline. The lungs are symmetrically expanded without e vidence for large focal consolidation, pneumothorax, or significant pleural ef fusion. The cardiomediastinal silhouette and pulmonary vasculature are with in normal limits. No acute osseous abnormality is identified. The surrounding soft tissues are unremarkable. IMPRESSION: No acute cardiopulmona ry process identified. Signed by: Dr. Geovanny Kelley MD on 06/07/2020 10:46 AM Dictated By: GEOVANNY KELLEY MD 45 Transcribed By: VINH on 06/07/201045 COPY TO: DENISE JOHNSON MD BASIC METABOLIC [id number] 13:05:00* Test Item Value Reference Range Interpretation Comments SODIUM (test code = NA) 136 mmol/L 136-145 N POTASSIUM (test code = K) 4.2 mmol/L 3.5-5.1 N CHLORIDE (test code = CL) 101.0 mmol/L 98-107 N CARBON DIOXIDE (test code = CO2) 28.0 mmol/L 21-32 N ANION GAP (test code = GAP) 11.2 10-20 N GLUCOSE (test code = GLU) 82 mg/dL 74-106 N BLOOD UREA NITROGEN (test code = BUN) 24 mg/dL 7-18 H GLOMERULAR FILTRATION RATE (test code = GFR) 55 mL/min >=60 Estimated GFR by using Modified MDRD formula.Chronic kidney disease is defined as either kidney damageor GFR <60 mL/min/1.73 m2 for >3 months. CREATININE (test code = CREAT) 1.00 mg/dL 0.55-1.02 N Note change in reference range due to change in reagent. BUN/CREATININE RATIO (test code = BUN/CREA) 24.0 10-20 H CALCIUM (test code = CA) 9.5 mg/dL 8.5-10.1 N BASIC METABOLIC [id number] 12:59:00* Test Item Value Reference Range Interpretation Comments SODIUM (test code = NA) 136 mmol/L 136-145 N POTASSIUM (test code = K) 4.2 mmol/L 3.5-5.1 N CHLORIDE (test code = CL) 101.0 mmol/L 98-107 N CARBON DIOXIDE (test code = CO2) mmol/L 21-32 ANION GAP (test code = GAP) 10-20 GLUCOSE (test code = GLU) mg/dL 74-106 BLOOD UREA NITROGEN (test code = BUN) mg/dL 7-18 GLOMERULAR FILTRATION RATE (test code = GFR) mL/min >=60 CREATININE (test code = CREAT) mg/dL 0.55-1.02 BUN/CREATININE RATIO (test code = BUN/CREA) 10-20 CALCIUM (test code = CA) mg/dL 8.5-10.1 PROTHROMBIN [id number] 12:45:00* Test Item Value Reference Range Interpretation Comments PROTHROMBIN TIME PATIENT (test code = PTP) 9.8 seconds 9.0-14.0 N INTERNATIONAL NORMAL RATIO (test code = INR) 0.8 0.8-1.2 N The therapeutic range for oral anticoagulant therapy formost indications is an international normalized ratio (INR)of between 2.0 and 3.0. The recommended therapeutic INRrange for various clinical situations is listed below: Clinical Situation INR range Pulmonary e mbolism treatment (2.0-3.0)Venous thrombosis treatmentVenous thrombosis prophylaxis (high risk surgery)Prevention of systemic embolism from: Acute myocardial infarction Valvular heart disease Atrial fibrillation Mechanical prosthetic heart valves (2.5-3.5) THROMBOPLASTIN TIME [id number] 12:45:00* Test Item Value Reference Range Interpretation Comments THROMBOPLASTIN TIME PARTIAL (test code = PTT) 29.4 seconds 25.0-36. 5 N CBC W/AUTO [id number] 12:32:00* Test Item Value Reference Range Interpretation Comments WHITE BLOOD CELL (test code = WBC) 5.8 K/mm3 4.5-12.5 N RED BLOOD CELL (test code = RBC) 4.66 mill/mm3 3.7-5.2 N HEMOGLOBIN (test code = HGB) 13.3 gram/dL 11.5-15.5 N HEMATOCRIT (test code = HCT) 41.4 % 36.0-46.0 N MEAN CELL VOLUME (test code = MCV) 88.8 fL 80-98 N MEAN CELL HGB (test code = MCH) 28.5 picogram 27.0-33.0 N MEAN CELL HGB CONCETRATION (test code = MCHC) 32.1 gram/dL 33.0-36. 0 L RED CELL DISTRIBUTION WIDTH (test code = RDW) 13.1 % 11.6-16. 2 N RED CELL DISTRIBUTION WIDTH SD (test code = RDW-SD) 42.5 fL 37 .0-51.0 N PLATELET COUNT (test code = PLT) 293 K/mm3 150-450 N MEAN PLATELET VOLUME (test code = MPV) 10.0 fL 6.7-11.0 N NEUTROPHIL % (test code = NT%) 57.7 % 39.0-69.0 N IMMATURE GRANULOCYTE % (test code = IG%) 0.3 % 0.0-5.0 N LYMPHOCYTE % (test code = LY%) 30.3 % 25.0-55.0 N MONOCYTE % (test code = MO%) 7.6 % 0.0-10.0 N EOSINOPHIL % (test code = EO%) 3.1 % 0.0-5.0 N BASOPHIL % (test code = BA%) 1.0 % 0.0-1.0 N NUCLEATED RBC % (test code = NRBC%) 0.0 % 0-0 N NEUTROPHIL # (test code = NT#) 3.35 K/mm3 1.8-7.7 N IMMATURE GRANULOCYTE # (test code = IG#) 0.02 x10 3/uL 0-0.03 N LYMPHOCYTE # (test code = LY#) 1.76 K/mm3 1.0-5.0 N MONOCYTE # (test code = MO#) 0.44 K/mm3 0-0.8 N EOSINOPHIL # (test code = EO#) 0.18 K/mm3 0.0-0.5 N BASOPHIL # (test code = BA#) 0.06 K/mm3 0.0-0.2 N NUCLEATED RBC # (test code = NRBC#) 0.00 K/mm3 0.0-0.1 N MANUAL DIFF REQUIRED (test code = MDIFF) NO CBC W/AUTO LNPO2986-35-29 12:31:00* Test Item Value Reference Range Interpretation Comments WHITE BLOOD CELL (test code = WBC) K/mm3 4.5-12.5 RED BLOOD CELL (test code = RBC) mill/mm3 3.7-5.2 HEMOGLOBIN (test code = HGB) 13.3 gram/dL 11.5-15.5 N HEMATOCRIT (test code = HCT) 41.4 % 36.0-46.0 N MEAN CELL VOLUME (test code = MCV) fL 80-98 MEAN CELL HGB (test code = MCH) picogram 27.0-33.0 MEAN CELL HGB CONCETRATION (test code = MCHC) gram/dL 33.0-36. 0 RED CELL DISTRIBUTION WIDTH (test code = RDW) % 11.6-16. 2 RED CELL DISTRIBUTION WIDTH SD (test code = RDW-SD) fL 37 .0-51.0 PLATELET COUNT (test code = PLT) K/mm3 150-450 MEAN PLATELET VOLUME (test code = MPV) fL 6.7-11.0 NEUTROPHIL % (test code = NT%) % 39.0-69.0 IMMATURE GRANULOCYTE % (test code = IG%) % 0.0-5.0 LYMPHOCYTE % (test code = LY%) % 25.0-55.0 MONOCYTE % (test code = MO%) % 0.0-10.0 EOSINOPHIL % (test code = EO%) % 0.0-5.0 BASOPHIL % (test code = BA%) % 0.0-1.0 NEUTROPHIL # (test code = NT#) K/mm3 1.8-7.7 LYMPHOCYTE # (test code = LY#) K/mm3 1.0-5.0 MONOCYTE # (test code = MO#) K/mm3 0-0.8 EOSINOPHIL # (test code = EO#) K/mm3 0.0-0.5 BASOPHIL # (test code = BA#) K/mm3 0.0-0.2 Urine [id number] 16:11:00* Test Item Value Reference Range Interpretation Comments Urine WBC (test code = 5821-4) NONE 0-5 [facility] DNN2364-25-77 16:11:00* Test Item Value Reference Range Interpretation Comments Urine RBC (test code = 84202-8) NONE 0-5 [facility] Fzwnjsqj6663-35-22 16:11:00* Test Item Value Reference Range Interpretation Comments Urine Bacteria (test code = 81391-5) NONE NONE [facility] Epithelial Razak6111-93-47 16:11:00 * Test Item Value Reference Range Interpretation Comments Urine Epithelial Cells (test code = 81740-5) RARE NONE [facility]/PELVIS [id number] 15:56:00 [facility] [address] [address] Patient Name: GABO INGRAM MR #: [id number] : 1950 Age/Sex: 69/F Req #: [id number] Adm Physician: Ordered by: YOLI ALVARENGA MD, MD Report #: [id number] Location: ER Room/Bed: Procedure: [id number] C T/CT ABDOMEN/PELVIS WO Exam Date: Exam Time: REPORT STATUS: Signed CT of the ab domen and pelvis, without contrast, 07/07/2019. History: His tory of renal cyst. Comparison: CT chest 06/20/2018. Technique: Multid etector CT scanning of the abdomen and pelvis was performed from the level of the lung bases to the inferior pubic rami without intravenous or oral contrast . Coronal and sagittal multiplanar reformations were obtained. RADIATION D OSE: Total DLP: 314 mGy*cm Dose modulation, iterative reconstructi on, and/or weight based adjustment of the mA/kV was utilized to reduce the rad iation dose to as low as reasonably achievable. Discussion: Examination is limited without contrast. Lung bases: Calcified granuloma is present in the left lower lobe. Abdomen: A 8.1 cm simple cyst is seen arising from the up per pole of the left kidney. Left kidney is otherwise unremarkable. The liver, gallbladder, biliary tree, spleen, pancreas, adrenal glands, and right kidney are unremarkable. The abdominal aorta is within normal limits. There is no b owel dilatation. Scattered colonic diverticuli are present without evidence of adjacent inflammation. There is no evidence of adenopathy or free fluid. Pelvis: The bladder is are unremarkable. The uterus and adnexa are not visu alized. Cavitations are present within the pelvis. There is no evidence of ramonita e fluid or adenopathy. Bones and soft tissues: Degenerative changes are pr esent throughout the lumbar spine without evidence of lytic or sclerotic lesio n. IMPRESSION: 1. Large simple left renal cyst. 2. Colonic divert iculosis without evidence of diverticulitis. 3. Status post hysterectomy. Signed by: Kaushik Veras on 07/07/2019 4:03 PM Dictated By: RUTHY VERAS MD 02 Transcr ibed By: VINH on 07/07/191602 COPY TO: YOLI ALVARENGA Urine Pziju0120-48-24 15:54:00* Test Item Value Reference Range Interpretation Comments Urine Color (test code = 5778-6) YELLOW YELLOW [facility] Ljxlkdy3173-82-79 15:54:00* Test Item Value Reference Range Interpretation Comments Urine Clarity (test code = 92478-2) SL CLOUDY CLEAR [facility] Specific Nscwwiw4310-85-32 15:54:00 * Test Item Value Reference Range Interpretation Comments Urine Specific [place] (test code = 5811-5) 1.020 1.010-1.02 5 [facility] fD3768-82-24 15:54:00* Test Item Value Reference Range Interpretation Comments Urine pH (test code = 69853-9) 6 5-7 [facility] Leukocyte Tpsxuuog0252-32-06 15:54:00* Test Item Value Reference Range Interpretation Comments Urine Leukocyte Esterase (test code = 43688-6) NEGATIVE NEGATIV E [facility] Bxirxpj6712-94-13 15:54:00* Test Item Value Reference Range Interpretation Comments Urine Nitrite (test code = 27187-0) NEGATIVE NEGATIVE [facility] Czrxhaw7512-79-12 15:54:00* Test Item Value Reference Range Interpretation Comments Urine Protein (test code = 05444-4) NEGATIVE NEGATIVE [facility] Glucose (UA)2019-07-07 15:54:00* Test Item Value Reference Range Interpretation Comments Urine Glucose (UA) (test code = 57247-6) NEGATIVE NEGATIVE [facility] Rfokgar7874-36-67 15:54:00* Test Item Value Reference Range Interpretation Comments Urine Ketones (test code = 25586-8) NEGATIVE NEGATIVE [facility] Tjpzmmodncdy0025-51-05 15:54:00* Test Item Value Reference Range Interpretation Comments Urine Urobilinogen (test code = 34244-5) 0.2 0.2-1 [facility] Gqwkntcbv4758-65-36 15:54:00* Test Item Value Reference Range Interpretation Comments Urine Bilirubin (test code = 1977-8) NEGATIVE NEGATIVE [facility] Vewmu7328-79-90 15:54:00* Test Item Value Reference Range Interpretation Comments Urine Blood (test code = 47515-5) NEGATIVE NEGATIVE [facility] CampusCreatine Kinase TN5366-68-01 15:16:00* Test Item Value Reference Range Interpretation Comments Creatine Kinase MB (test code = 66306-6) 1.50 0-5.0 [facility] CampusTroponin B8910-71-68 15:16:00* Test Item Value Reference Range Interpretation Comments Troponin I (test code = UZH6047) < 0.001 0-0.300 [facility] CampusThyroid Stimulating Hormone (TSH) 2019-07-07 15:16:00* Test Item Value Reference Range Interpretation Comments Thyroid Stimulating Hormone (TSH) (test code = 36816-0) 4.807 0.350-4.940 [facility] CampusCHEST SINGLE (PORTABLE)2019-07-07 15:06:00 [facility] [address] [place] [address] Patient Name: GABO INGRAM MR #: [id number] : 1950 Age/Sex: 69/F Req #: [id number] Adm Physician: Ordered by: YOLI ALVARENGA MD, MD Report #: [id number] Location: ER Room/Bed: Procedure: [id number] D X/CHEST SINGLE (PORTABLE) Exam Date: 07/07/19 Exam T ld: 1450 REPORT STATUS: Signed Chest, 1 view, 07/07/2019. History: Tachycardia. Comparison: 1 08/20/2017. Findings: The cardiomediastinal silhouette and pulmonary vascula ture are within normal limits for a portable exam. Calcified right hilar lymph node is present. There is no focal consolidation or pleural effusion. Promine nce right epicardial fat-pad is noted. There are no acute osseous or soft tiss ue abnormalities. Impression: No acute cardiopulmonary abnormality. Signed by: Kaushik Veras on 07/07/2019 3:07 PM Dictated By: KAUSHIK REEVES MD 1507 Transcribe d By: VINH on 07/07/19 0329 COPY TO: YOLI ALVARENGA B-Type Natriuretic Mixjpdv1616-17-28 15:04:00* Test Item Value Reference Range Interpretation Comments B-Type Natriuretic Peptide (test code = 84863-8) 60.3 0-100 [facility] Kywis6398-57-37 14:57:00* Test Item Value Reference Range Interpretation Comments Sodium Level (test code = 2951-2) 139 136-145 [facility]assium Cetbi2079-01-20 14:57:00* Test Item Value Reference Range Interpretation Comments Potassium Level (test code = 2823-3) 3.6 3.5-5.1 [facility] CampusChloride Uemxz8536-12-13 14:57:00* Test Item Value Reference Range Interpretation Comments Chloride Level (test code = 2075-0) 101 98-107 [facility] CampusCarbon Dioxide Wxzyd1073-22-54 14:57:00* Test Item Value Reference Range Interpretation Comments Carbon Dioxide Level (test code = 2028-9) 24 22-29 [facility] CampusAnion Pyk9387-33-87 14:57:00* Test Item Value Reference Range Interpretation Comments Anion Gap (test code = 52022-1) 17.6 8-16 H [facility] CampusBlood Urea Kdmrgzum8311-59-67 14:57:00* Test Item Value Reference Range Interpretation Comments Blood Urea Nitrogen (test code = 3094-0) 27 7-26 H [facility] CampusCreatinine2019-11-27 14:57:00* Test Item Value Reference Range Interpretation Comments Creatinine (test code = 2160-0) 1.33 0.57-1.11 H [facility] CampusBUN/Creatinine Tcjpy8206-38-49 14:57:00* Test Item Value Reference Range Interpretation Comments BUN/Creatinine Ratio (test code = 3097-3) 20 6-25 [facility] CampusEstimat Glomerular Filtration Rate 2019-07-07 14:57:00* Test Item Value Reference Range Interpretation Comments Estimat Glomerular Filtration Rate (test code = 468102037) 39 >60 L Ranges were taken from the National Kidney Disease Education Program and the [facility] literature.Reference ranges:60 or greater: Zvfmdc54-24 ( for 3 consecutive months): Chronic kidney disease 15 or less: Kidney failureThe Hospitals of Providence Sierra CampusGlucose Xiclf1201-14-54 14:57:00* Test Item Value Reference Range Interpretation Comments Glucose Level (test code = DUY0731) 143 74-118 H [facility] CampusCalcium Bceyp5108-27-41 14:57:00* Test Item Value Reference Range Interpretation Comments Calcium Level (test code = 23213-3) 9.6 8.4-10.2 [facility] CampusMagnesium Xybkp4771-24-53 14:57:00* Test Item Value Reference Range Interpretation Comments Magnesium Level (test code = 36178-4) 1.7 1.3-2.1 [facility] CampusTotal Rdmecmjzv0605-65-44 14:57:00* Test Item Value Reference Range Interpretation Comments Total Bilirubin (test code = 1975-2) 0.3 0.2-1.2 [facility] CampusAspartate Amino Transf (AST/SGOT) 2019-07-07 14:57:00* Test Item Value Reference Range Interpretation Comments Aspartate Amino Transf (AST/SGOT) (test code = Aspartate Amino Transf (AST/SGOT)) 15 5-34 [facility] CampusAlanine Aminotransferase (ALT/SGPT) 2019-07-07 14:57:00* Test Item Value Reference Range Interpretation Comments Alanine Aminotransferase (ALT/SGPT) (test code = 1742-6) 12 0-55 [facility] CampusTotal Voiudta8264-90-47 14:57:00* Test Item Value Reference Range Interpretation Comments Total Protein (test code = 2885-2) 7.7 6.5-8.1 [facility] CampusAlbumin2019-11-27 14:57:00* Test Item Value Reference Range Interpretation Comments Albumin (test code = 1751-7) 3.4 3.5-5.0 L [facility] CampusGlobulin2019-11-27 14:57:00* Test Item Value Reference Range Interpretation Comments Globulin (test code = 55689-7) 4.3 2.3-3.5 H [facility] CampusAlbumin/Globulin Luuwc6138-46-56 14:57:00 * Test Item Value Reference Range Interpretation Comments Albumin/Globulin Ratio (test code = 1759-0) 0.8 0.8-2.0 [facility] CampusAlkaline Vievpnmtoci3239-54-51 14:57:00* Test Item Value Reference Range Interpretation Comments Alkaline Phosphatase (test code = 6768-6) 72 40-150 [facility] CampusCreatine Rxwasm1372-37-36 14:57:00* Test Item Value Reference Range Interpretation Comments Creatine Kinase (test code = 2157-6) 57 29-168 [facility] CampusProthrombin Wyff0485-93-24 14:47:00* Test Item Value Reference Range Interpretation Comments Prothrombin Time (test code = 5902-2) 11.8 11.9-14.5 L [facility] CampusProthromb Time International Ratio 2019-07-07 14:47:00* Test Item Value Reference Range Interpretation Comments Prothromb Time International Ratio (test code = 6301-6) 0.82 Oral Anticoagulant Therapy INR Values:1. Low Intensity Therapy 1.5 - 2.02 . Moderate Intensity Therapy 2.0 - 3.03. High Intensity Therapy(1) 2.5 - 3. 54. High Intensity Therapy(2) 3.0 - 4.05. Panic Value INR > 5.0 [facility] CampusActivated Partial Thromboplast Time 2019-07-07 14:47:00* Test Item Value Reference Range Interpretation Comments Activated Partial Thromboplast Time (test code = 14253-4) 25.2 23.8-35.5 [facility] CampusWhite Blood Bxasr7337-15-78 14:34:00* Test Item Value Reference Range Interpretation Comments White Blood Count (test code = 6690-2) 11.15 4.8-10.8 H [facility] CampusRed Blood Dabou2876-69-06 14:34:00* Test Item Value Reference Range Interpretation Comments Red Blood Count (test code = 789-8) 4.54 3.6-5.1 [facility] CampusHemoglobin2019-11-27 14:34:00* Test Item Value Reference Range Interpretation Comments Hemoglobin (test code = 39807-9) 13.0 12.0-16.0 [facility] CampusHematocrit2019-11-27 14:34:00* Test Item Value Reference Range Interpretation Comments Hematocrit (test code = 4544-3) 40.2 34.2-44.1 [facility] CampusMean Corpuscular Fdxjfu4686-97-19 14:34:00* Test Item Value Reference Range Interpretation Comments Mean Corpuscular Volume (test code = 787-2) 88.5 81-99 [facility] CampusMean Corpuscular Ydkwxeplos9135-60-94 14:34:00* Test Item Value Reference Range Interpretation Comments Mean Corpuscular Hemoglobin (test code = 785-6) 28.6 28-32 [facility] CampusMean Corpuscular Hemoglobin Concent 2019-07-07 14:34:00* Test Item Value Reference Range Interpretation Comments Mean Corpuscular Hemoglobin Concent (test code = 786-4) 32.3 31-35 [facility] CampusRed Cell Distribution Qqooh5960-08-91 14:34:00* Test Item Value Reference Range Interpretation Comments Red Cell Distribution Width (test code = 57081-2) 13.0 11.7 -14.4 [facility] CampusPlatelet Diaia0640-11-97 14:34:00* Test Item Value Reference Range Interpretation Comments Platelet Count (test code = 777-3) 313 140-360 [facility] CampusNeutrophils (%) (Auto)2019-07-07 14:34:00 * Test Item Value Reference Range Interpretation Comments Neutrophils (%) (Auto) (test code = 82732-6) 59.1 38.7-80.0 [facility] CampusLymphocytes (%) (Auto)2019-07-07 14:34:00 * Test Item Value Reference Range Interpretation Comments Lymphocytes (%) (Auto) (test code = 736-9) 34.7 18.0-39.1 [facility] CampusMonocytes (%) (Auto)2019-07-07 14:34:00* Test Item Value Reference Range Interpretation Comments Monocytes (%) (Auto) (test code = 5905-5) 4.6 4.4-11.3 [facility] CampusEosinophils (%) (Auto)2019-07-07 14:34:00 * Test Item Value Reference Range Interpretation Comments Eosinophils (%) (Auto) (test code = 713-8) 0.8 0.0-6.0 [facility] CampusBasophils (%) (Auto)2019-07-07 14:34:00* Test Item Value Reference Range Interpretation Comments Basophils (%) (Auto) (test code = 706-2) 0.4 0.0-1.0 [facility] CampusIM GRANULOCYTES %2019-07-07 14:34:00* Test Item Value Reference Range Interpretation Comments IM GRANULOCYTES % (test code = IM GRANULOCYTES %) 0.4 0.0- 1.0 [facility] CampusNeutrophils # (Auto)2019-07-07 14:34:00* Test Item Value Reference Range Interpretation Comments Neutrophils # (Auto) (test code = 751-8) 6.6 2.1-6.9 [facility] CampusLymphocytes # (Auto)2019-07-07 14:34:00* Test Item Value Reference Range Interpretation Comments Lymphocytes # (Auto) (test code = 14837-3) 3.9 1.0-3.2 H [facility] CampusMonocytes # (Auto)2019-07-07 14:34:00* Test Item Value Reference Range Interpretation Comments Monocytes # (Auto) (test code = 742-7) 0.5 0.2-0.8 [facility] CampusEosinophils # (Auto)2019-07-07 14:34:00* Test Item Value Reference Range Interpretation Comments Eosinophils # (Auto) (test code = 711-2) 0.1 0.0-0.4 [facility] CampusBasophils # (Auto)2019-07-07 14:34:00* Test Item Value Reference Range Interpretation Comments Basophils # (Auto) (test code = 704-7) 0.1 0.0-0.1 [facility] CampusAbsolute Immature Granulocyte (auto 2019-07-07 14:34:00* Test Item Value Reference Range Interpretation Comments Absolute Immature Granulocyte (auto (gennaro t code = Absolute Immature Granulocyte (auto) 0.05 0-0.1 [facility] CampusCT CHEST W0200-20-12 09:49:[address] [address] Patient Name: GABO INGRAM MR #: [id number] : 1950 Age/Sex: 68/F Req #: [id number] [facility] Physician: Ordered by: ANABELLA DUENAS MD Report #: [id number] Location: ER Room/Bed: Procedure: [id number] CT/CT CHEST W Exam Date: Exam Time: REPORT STATUS: Signed EXAM: CTA Chest WITH contrast / Pulmonary Embolus Study INDICATION: Pain COMPARISON: Same day rad iograph TECHNIQUE: Angiogram of the chest was obtained using a multidetecto r helical scanner after administration of IV contrast. Coronal and sagittal re formations were obtained. Pulmonary embolus protocol. IV CONTRAS T: 100 mL Omnipaque 370 COMPLICATIONS: None RADIATIO N DOSE: Total DLP: 498 mGy*cm Estimated effective dose: (DLP x 0.0 15 x size factor) mSv CTDIvol has been reviewed. It is below the limits s et by the Radiation Protocol Committee (RPC). Appropriate CT dose reduction te chniques were utilized. FINDINGS: Lines and Tubes: None. Lowe r Neck: The visualized thyroid gland is grossly unremarkable with no suspiciou s or significant nodule identified. Heart and Great Vessels: The aorta and main pulmonary artery measure 34 and 24 mm. respectively. No pericardial effu adelina. No pulmonary embolus identified. Prominent pericardial fat. Lymph N odes: Calcified mediastinal/hilar lymph nodes. Lungs: There is minimal jennifer pical scarring with no pneumothorax. Trachea and central bronchi are unremarka ble. Granuloma medial left lower lobe. Minimal atelectasis present in the lung bases. Upper abdomen: 81 mm cystic lesion left upper quadrant partially v isualized, presumably renal. Bones and Soft Tissues: No acute findings. IMPRESSION: 1. No pulmonary embolus. 2. Evidence prior granulomat ous disease. 3. Large cystic lesion left upper quadrant incompletely evalu ated. Nonemergent outpatient renal ultrasound recommended. Signed by: Dr. Francis Minaya MD on 06/20/2018 9:52 AM Dictated By: FRANCIS Solomon 1 Transcribed By: VINH on 06/20/18951 COPY TO: ANABELLA DUENAS MD CHEST SINGLE (PORTABLE)2018-06-20 09:22:00 [place] [address] Patient Name: GABO INGRAM MR #: [id number] : 1950 Age/Sex: 68/F Req #: [id number] Adm Physician: Ordered by: ANABELLA DUENAS MD Report #: [id number] Location: ER Room/Bed: Procedure: [id number] DX/CH EST SINGLE (PORTABLE) Exam Date: 06/20/18 Exam Time: 909 REPORT STATUS: Signed EXAM : XR CHEST 1 VIEW DATE: 06/20/2018 8:02 AM INDICATION: Pain COMP ARISON: None FINDINGS: Lines and Tubes: None Heart and Mediastinu m: No acute cardiomediastinal findings. Lungs and Pleura: Questionable opac ity left lung base. Bones and Soft Tissues: No acute findings. IMPRESS ION: 1. Questionable opacity left lung base could represent focal area of pneumonitis, atelectasis, pericardial fat, or nipple shadow. This is slightly more conspicuous than previous study. Clinical/laboratory correlation and 4 we ek 2 view chest x-ray follow-up with nipple markers. Signed by: Dr. Francis Childs MD on 06/20/2018 9:23 AM Dictated By: FRANCIS MINAYA MD [facility] Signed By: FRANCIS MINAYA MD on 11/10/18 0923 Transcribed By: VINH on 06/20/18922 COPY TO: ANABELLA DUENAS MD HAND 3+ VIEWS RIGHT [place] [address] Patient Name: GABO INGRAM MR #: [id number] : Age/Sex: 67/F Req #: [id number] Adm Physician: Ordered by: ASHLEY RAE MD Report #: [id number] Location: ER Room/Bed : Procedure: [id number] DX/HAND 3+ VIEWS RIGHT Exam D ate: 11/16/17 Exam Time: 0900 REPORT STATUS: Si gned RIGHT BONE XRAY - 3 VIEWS HISTORY: COMPARISON : None available. FINDINGS: Bones: No acute displaced fracture. Diffuse bone demineralization. Osseous alignment is within normal limits. Joints: The joint spaces are well-maintained. Soft tissues: The soft t issues appear unremarkable. IMPRESSION: No acute radiographic abnorma lity. Signed by: Dr. Flaca Quezada M.D. on 11/16/2017 9:49 AM Dictated By: FLACA QUEZADA MD 8 Transcribed By: VINH on 11/16/17948 COPY TO: ASHLEY RAE MD
--- OUTSIDE RECORDS SUMMARY | 2020-06-15 17:24 | XMS REPORT | Continuity of Care Document ---
Author Author [facility] t Organization [facility] Address [address] [place] [address] Phone Unavailable Care Team Providers Care Casino Cashier Name Role Phone HUYEN MURO, MD GARCIA PCP RADHA MATSON Attphys Unavailable YOLI ALVARENGA Attphys Unavailable Loi SHELTON Attphys Unavailable Betty RAE Attphys Unavailable RADHA MATSON Admphys Unavailable Loi SHELTON Admphys Unavailable Payers Payer Name Policy Type Policy Number Effective Date Expiration Date Loi Byeer [facility] [id number] 2013 [id number] 2013 00:00:00 [facility] Problems Condition Name Condition Details Condition Category Status Onset Date Resolution Date Last Treatment Date Treating Clinician Comments Source Chest pain Chest pain Problem Active C [facility] Precordial pain Problem Active [facility] Allergies, Adverse Reactions, Alerts Allergy Name Allergy Type Status Severity Reaction(s) Onset Date Inacti ve Date Treating Clinician Comments Source No Known Allergies DA Active U 2019-08-12 00:00:00 [facility] Codeine Allergy to substance Active Mild 2018-06-20 00:00:00 [facility] Promethazine Allergy to substance Active Mild 2018-06-20 00:00:0 0 [facility] No Known Contrast Allergies DA Active U 2003-10-04 00:00: 00 [facility] No Known Drug Allergies DA Active U 2003-10-04 00:00:00 [facility] No Known Food Allergies DA Active U 2003-10-04 00:00:00 [facility] No Known Other Allergies DA Active U 2003-10-04 00:00:00 [facility] Social History Social Habit Start Date Stop Date Quantity Comments Source Sex Assigned At 1950 00:00:00 1950 00:00:00 Female [facility] Medications Ordered Medication Name Filled Medication Name Start Date Stop Da te Current Medication? Ordering Clinician Indication Dosage Frequency Signature (SIG) Comments Components Source Estradiol Estradiol Yes 1 Daily [facility] Aspirin (Aspir 81) 81 Mg TABLET. Aspirin (Aspir 81) 81 Mg VANDNAA ET 2020-06-07 00:00:00 No Daily [facility] Estrogens, Conjugated (Premarin) 0.9 Mg TABLET Estroge ns, Conjugated (Premarin) 0.9 Mg TABLET 2020-06-07 00:00:00 No .9 Bedtime [facility] Lisinopril/Hydrochlorothiazide (Lisinopril-Hctz 20-25 Mg Tab) 1 Each TABLET Lisinopril/Hydrochlorothiazide (Lisinopril-Hctz 20-25 Mg Tab) 1 Each TABLET 2020-06-07 00:00:00 No .5 Bedtime [facility] Citalopram Hydrobromide (Citalopram Hbr) 20 Mg TABLET Citalopram Hydrobromide (Citalopram Hbr) 20 Mg TABLET 2018-06-20 00:00:00 No 20 Daily [facility] Enalapril Maleate (Vasotec) 5 Mg TABLET Enalapril Maleate (V asotec) 5 Mg TABLET 2018-06-20 00:00:00 No 5 Daily [facility] Vital Signs Vital Name Observation Time Observation Value Comments Source Body Temperature 2020-06-08 10:53:00 97.9 [degF] [facility] Heart Rate 2020-06-08 10:53:00 66 /min [facility] Respiratory rate 2020-06-08 10:53:00 18 /min [facility] BP Systolic 2020-06-08 10:53:00 133 mm[Hg] [facility] BP Diastolic 2020-06-08 10:53:00 69 mm[Hg] [facility] Oxygen saturation by Pulse oximetry 2020-06-08 10:53:00 100 /min [facility] BMI (Body Mass Index) 2020-06-07 13:26:00 26.9 kg/m2 [facility] Weight 2020-06-07 11:05:00 152 [lb_av] [facility] Procedures Procedure Date / Time Performed Performing Clinician [facility] donta CT angiography of chest 2020-06-07 00:00:00 [facility] Plan of Care Planned Activity Planned Date Details Comments Source Instructions How to Take Your Blood Pressure [facility] Instructions Chest Pain - Noncardiac [facility] Instructions Chest Pain - Chest Wall [facility] Instructions Cardiac Disease Risk Factors [facility] Encounters Start Date/Time End Date/Time Encounter Type Ad[facility] ID Source 2020-06-07 11:51:00 2020-06-08 13:17:00 Discharged Inpatient (obs) 1 RADHA MATSON [facility] [id number] [facility] 2019-07-07 14:19:00 2019-07-07 16:34:00 Departed Emergency Room 1 YOLI ALVARENGA [facility] [id number] [facility] 2017-11-16 08:37:00 2017-11-16 10:26:00 Departed Emergency Room ER KYRAASHLEY [facility] [id number] [facility] Results Test Description Test Time Test Comments Results Result Comments Source Blood leukocytes automated count (number/volume) 2020-06-08 06:22:00 Test Item White Blood Count (test code = 6690-2) 4.15 10*3/uL 4.8-10.8 [facility] erythrocytes automated count (number/volume)2020-06-08 06:22:00* Test Item Value Reference Range Interpretation Comments Red Blood Count (test code = 789-8) 4.06 10*6/mL 3.6-5.1 [facility] hemoglobin measurement (moles/volume)2020-06-08 06:22:00* Test Item Value Reference Range Interpretation Comments Hemoglobin (test code = 08207-7) 11.6 g/dL 12.0-16.0 [facility] Renaissance[facility] blood hematocrit (volume fraction)2020-06-08 06:22:00* Test Item Value Reference Range Interpretation Comments Hematocrit (test code = 4544-3) 35.9 % 34.2-44.1 [facility] Renaissance[facility] erythrocyte mean corpuscular fvhrwt9011-42-50 06:22:00* Test Item Value Reference Range Interpretation Comments Mean Corpuscular Volume (test code = 787-2) 88.4 81-99 [facility] Renaissance[facility] erythrocyte mean corpuscular hemoglobin (mass per erythrocyte)2020-06-08 06:22:00* Test Item Value Reference Range Interpretation Comments Mean Corpuscular Hemoglobin (test code = 785-6) 28.6 pg 28-32 [facility] RenaissanceAutom[facility] erythrocyte mean corpuscular hemoglobin concentration measurement (mass/volume)2020-06-08 06:22:00* Test Item Value Reference Range Interpretation Comments Mean Corpuscular Hemoglobin Concent (test code = 786-4) 32.3 g/dL 31-35 [facility] RenaissanceRDW NrqIf-Tpj5235-76-29 06:22:00* Test Item Value Reference Range Interpretation Comments Red Cell Distribution Width (test code = 66539-6) 13.2 % 11.7 -14.4 [facility] Renaissance[facility] blood platelet count (count/volume)2020-06-08 06:22:00* Test Item Value Reference Range Interpretation Comments Platelet Count (test code = 777-3) 208 10*3/uL 140-360 [facility] RenaissanceAutomated blood segmented neutrophil count as percentage of total gvvhcwpfyc2355-13-14 06:22:00* Test Item Value Reference Range Interpretation Comments Neutrophils (%) (Auto) (test code = 51210-4) 42.2 % 38.7-80.0 [facility] Renaissance[facility] blood lymphocyte count as percentage ot total duquexvrfg7618-21-80 06:22:00* Test Item Value Reference Range Interpretation Comments Lymphocytes (%) (Auto) (test code = 736-9) 42.7 % 18.0-39.1 [facility] RenaissanceAutom[facility] blood monocyte count as percentage of total qavcyeoiys3043-52-43 06:22:00* Test Item Value Reference Range Interpretation Comments Monocytes (%) (Auto) (test code = 5905-5) 9.2 % 4.4-11.3 [facility] Renaissance[facility] blood eosinophil count as percentage of total wffcyfvbis9050-44-94 06:22:00* Test Item Value Reference Range Interpretation Comments Eosinophils (%) (Auto) (test code = 713-8) 4.3 % 0.0-6.0 [facility] Renaissance[facility] blood basophil count as percentage of total zqjvvahijb4240-59-80 06:22:00* Test Item Value Reference Range Interpretation Comments Basophils (%) (Auto) (test code = 706-2) 1.4 % 0.0-1.0 [facility] RenaissanceFluoroscopic procedure less than one hour bxluueek4019-18-80 06:22:00* Test Item Value Reference Range Interpretation Comments IM GRANULOCYTES % (test code = IM GRANULOCYTES %) 0.2 % 0.0- 1.0 [facility] Renaissance[facility] blood neutrophil count 2020-06-08 06:22:00* Test Item Value Reference Range Interpretation Comments Neutrophils # (Auto) (test code = 751-8) 1.8 2.1-6.9 [facility] RenaissanceBlood lymphocytes count (number/volume) 2020-06-08 06:22:00* Test Item Value Reference Range Interpretation Comments Lymphocytes # (Auto) (test code = 16155-3) 1.8 1.0-3.2 [facility] RenaissanceBlood monocytes automated count (number/volume)2020-06-08 06:22:00* Test Item Value Reference Range Interpretation Comments Monocytes # (Auto) (test code = 742-7) 0.4 0.2-0.8 [facility] RenaissanceAutom[facility] blood eosinophil count 2020-06-08 06:22:00* Test Item Value Reference Range Interpretation Comments Eosinophils # (Auto) (test code = 711-2) 0.2 0.0-0.4 [facility] RenaissanceAutomated blood basophil count (count/volume)2020-06-08 06:22:00* Test Item Value Reference Range Interpretation Comments Basophils # (Auto) (test code = 704-7) 0.1 0.0-0.1 [facility] RenaissanceFluoroscopic procedure less than one hour ioetginf2633-17-74 06:22:00* Test Item Value Reference Range Interpretation Comments Absolute Immature Granulocyte (auto (gennaro t code = Absolute Immature Granulocyte (auto) 0.01 10*3/uL 0-0.1 [facility] plasma sodium measurement (moles/volume)2020-06-08 06:22:00* Test Item Value Reference Range Interpretation Comments Sodium Level (test code = 2951-2) 138 mmol/L 136-145 [facility] or plasma potassium measurement (moles/volume)2020-06-08 06:22:00* Test Item Value Reference Range Interpretation Comments Potassium Level (test code = 2823-3) 4.0 mmol/L 3.5-5.1 [facility] or plasma chloride measurement (moles/volume)2020-06-08 06:22:00* Test Item Value Reference Range Interpretation Comments Chloride Level (test code = 2075-0) 108 mmol/L 98-107 [facility] or plasma carbon dioxide, total measurement (moles/volume)2020-06-08 06:22:00* Test Item Value Reference Range Interpretation Comments Carbon Dioxide Level (test code = 2028-9) 23 mmol/L [facility] or plasma anion cit5606-13-12 06:22:00* Test Item Value Reference Range Interpretation Comments Anion Gap (test code = 72238-0) 11.0 mmol/L 8- [facility] or plasma urea nitrogen measurement (mass/volume)2020-06-08 06:22:00* Test Item Value Reference Range Interpretation Comments Blood Urea Nitrogen (test code = 3094-0) 17 mg/dL - [facility] or plasma creatinine measurement (mass/volume)2020-06-08 06:22:00* Test Item Value Reference Range Interpretation Comments Creatinine (test code = 2160-0) 0.82 mg/dL 0.57-1.11 [facility] or plasma urea nitrogen/creatinine mass ueleg4976-81-65 06:22:00* Test Item Value Reference Range Interpretation Comments BUN/Creatinine Ratio (test code = 3097-3) 21 6- [facility] RenaissanceEstimated glomerular filtration rate (GFR) mvhybzrmvbhzj2934-57-46 06:22:00* Test Item Value Reference Range Interpretation Comments Estimat Glomerular Filtration Rate (test code = 624382220) > 60 mL/ min >60 Ranges were taken from the National Kidney Disease Education Program and the [place] Kid[facility] Foundation literature.Reference ranges:60 or greater: Epkyxd90-06 ( for 3 consecutive months): Chronic kidney disease 15 or less: Kidney failureDoctors Hospital at RenaissanceGlucose tokzxiihjma0529-00-30 06:22:00* Test Item Value Reference Range Interpretation Comments Glucose Level (test code = QPD5566) 85 mg/dL 74-118 [facility]er[facility] or plasma calcium measurement (mass/volume)2020-06-08 06:22:00* Test Item Value Reference Range Interpretation Comments Calcium Level (test code = 91664-7) 8.7 mg/dL 8.4-10.2 [facility] or plasma magnesium measurement (mass/volume)2020-06-08 06:22:00* Test Item Value Reference Range Interpretation Comments Magnesium Level (test code = 25541-2) 1.8 mg/dL 1.3-2.1 [facility] or plasma triglyceride measurement (mass/volume)2020-06-08 06:22:00* Test Item Value Reference Range Interpretation Comments Triglycerides Level (test code = 2571-8) 93 mg/dL 0-149 [facility] or plasma cholesterol measurement (mass/volume)2020-06-08 06:22:00* Test Item Value Reference Range Interpretation Comments Cholesterol Level (test code = 2093-3) 200 mg/dL 0-199 Less than 200 mg/dL Low Uqmf999 - 239 mg/dL Borderline Ltsh088 m g/dl and greater High Risk [facility]um or plasma cholesterol in LDL measurement (mass/volume) 2020-06-08 06:22:00* Test Item Value Reference Range Interpretation Comments LDL Cholesterol (test code = 2089-1) 110 mg/dL 60-130 [facility] or plasma cholesterol in HDL measurement (mass/volume)2020-06-08 06:22:00* Test Item Value Reference Range Interpretation Comments HDL Cholesterol (test code = 2085-9) 71 mg/dL 40-60 [facility]um or plasma total cholesterol/cholesterol in HDL mass rxwrm9817-28-29 06:22:00* Test Item Value Reference Range Interpretation Comments Cholesterol/HDL Ratio (test code = 9830-1) 2.8 3.0-3.6 [facility] or plasma creatine kinase measurement (enzymatic activity/volume)2020-06-08 06:22:00* Test Item Value Reference Range Interpretation Comments Creatine Kinase (test code = 2157-6) 50 [IU]/L 29-168 [facility] or plasma creatine kinase MB measurement (mass/volume)2020-06-08 06:22:00* Test Item Value Reference Range Interpretation Comments Creatine Kinase MB (test code = 33773-8) 1.20 ng/mL 0-5.0 [facility] RenaissanceTroponin I measurement by highly sensitive enzyme thnurzbreqv2676-54-88 06:22:00* Test Item Value Reference Range Interpretation Comments Troponin I (test code = 93419-4) < 0.001 ng/mL 0-0.300 [facility] RenaissanceCTA SEVPI9476-59-78 15:07:00 [facility] 1950 Sex: F [facility] [address] [address] Patient Name: GABO INGRAM MR #: [id number] : 1950 Age/Sex: 70/F Req #: [id number] [facility] Physician: RADHA MATSON MD Ord ered by: SERGE LEWIS MD Report #: [id number] Location: MED/SURG Room/Bed: [facility] __ Procedure: [id number] CT/CTA CHEST Exam Date: 06/07/20 Exam Time: [...] (test code = 1798-8) 39 U/L 25-125 [facility] or plasma lipase measurement (enzymatic activity/volume)2020-06-07 14:45:00* Test Item Value Reference Range Interpretation Comments Lipase (test code = 3040-3) 25 U/L 8-78 [facility]um or plasma thyrotropin measurement by detection limit <= 0.005 miu/l (units/volume)2020-06-07 14:45:00* Test Item Value Reference Range Interpretation Comments Thyroid Stimulating Hormone (TSH) (test code = 49189-2) 4.034 0.350-4.940 [facility] RenaissanceFluoroscopic procedure less than one hour kqeeywmm6714-53-80 12:00:00* Test Item Value Reference Range Interpretation Comments Coronavirus (PCR) (test code = Coronavirus (PCR)) NOT DETECTED NOTD ETECTED SARS-CoV-2 PCRHologic Aptima SARS-CoV-2 assay is a nucleic amplification test in tended for the qualitative detection of RNA from SARS-CoV-2 from nasopharyngeal ([employer]) specimens. It is used under Emergency Use [...] repr at testing oc clinically indicated.Tesing performed by:[facility] Laboratory Services[address] [place] [id number], Rolando nieves MD, PhDDoctors Hospital at RenaissanceCXR 1 VEW - [id number] 10:45:00[facility] 1950 Sex: F [address] [address] Patient Name: GABO INGRAM MR #: [id number] : 1950 Age/Sex: 70/F Req #: [id number] Adm Physician: Ordered by: DENISE SCOTT MD Report #: [id number] Location: [facility] Room/Bed: __ Procedure: [id number] HOPD/CXR 1 VEW - HOPD Exam Date: [...] COPY TO: DENISE JOHNSON MD BASIC METABOLIC [id number] 13:05:00* Test Item Value Reference Range Interpretation [...] CA) 9.5 mg/dL 8.5-10.1 N BASIC METABOLIC [id number] 12:59:00* Test Item Value Reference Range Interpretation [...] (test code = CA) mg/dL 8.5-10.1 PROTHROMBIN [id number] 12:45:00* Test Item Value Reference Range Interpretation [...] Mechanical prosthetic heart valves (2.5-3.5) THROMBOPLASTIN TIME IDLHZIP3988-62-02 12:45:00* Test Item Value Reference Range Interpretation Comments THROMBOPLASTIN TIME PARTIAL (test code = PTT) 29.4 seconds 25.0-36. 5 N CBC W/AUTO [id number] 12:32:00* Test Item Value Reference Range Interpretation [...] (test code = MDIFF) NO CBC W/AUTO [id number] 12:31:00* Test Item Value Reference Range Interpretation [...] (test code = BA#) K/mm3 0.0-0.2 Urine [id number] 16:11:00* Test Item Value Reference Range Interpretation Comments Urine WBC (test code = 5821-4) NONE 0-5 [facility] RenaissanceU[facility] SBL5168-60-10 16:11:00* Test Item Value Reference Range Interpretation Comments Urine RBC (test code = 60752-8) NONE 0-5 [facility] RenaissanceUrine Tqbwrkby4599-09-40 16:11:00* Test Item Value Reference Range Interpretation Comments Urine Bacteria (test code = 27671-9) NONE NONE [facility] RenaissanceU[facility] Epithelial Blvgu7971-84-18 16:11:00 * Test Item Value Reference Range Interpretation Comments Urine Epithelial Cells (test code = 96522-1) RARE NONE [facility] RenaissanceCT ABDOMEN/PELVIS TD1308-72-47 15:56:00 [facility] [address] [address] Patient Name: GABO INGRAM MR #: [id number] : 1950 Age/Sex: 69/F Req #: [id number] Adm Physician: Ordered by: YOLI ALVARENGA MD, MD Report #: [id number] Location: ER Room/Bed: Procedure: [id number] C T/CT ABDOMEN/PELVIS WO Exam Date: Exam [...] on 07/07/191602 COPY TO: YOLI ALVARENGA Urine Rfthv1934-03-64 15:54:00* Test Item Value Reference Range Interpretation Comments Urine Color (test code = 5778-6) YELLOW YELLOW [facility] RenaissanceU[facility] Mneyndr2117-46-85 15:54:00* Test Item Value Reference Range Interpretation Comments Urine Clarity (test code = 16433-5) SL CLOUDY CLEAR [facility] RenaissanceU[facility] Specific Yxbqufl6820-59-63 15:54:00 * Test Item Value Reference Range Interpretation Comments Urine Specific [place] (test code = 5811-5) 1.020 1.010-1.02 5 [facility] RenaissanceU[facility] [id number] 15:54:00* Test Item Value Reference Range Interpretation Comments Urine pH (test code = 96823-1) 6 5-7 [facility] Leukocyte Uhlhzldm7251-16-15 15:54:00* Test Item Value Reference Range Interpretation Comments Urine Leukocyte Esterase (test code = 07242-1) NEGATIVE NEGATIV E [facility] RenaissanceU[facility] Nvlywqu4839-44-47 15:54:00* Test Item Value Reference Range Interpretation Comments Urine Nitrite (test code = 39480-1) NEGATIVE NEGATIVE [facility] RenaissanceU[facility] Wfrjjtd0554-47-89 15:54:00* Test Item Value Reference Range Interpretation Comments Urine Protein (test code = 51439-8) NEGATIVE NEGATIVE [facility] Renaissance[facility] Glucose (UA)2019-07-07 15:54:00* Test Item Value Reference Range Interpretation Comments Urine Glucose (UA) (test code = 65572-6) NEGATIVE NEGATIVE [facility] RenaissanceUrine Erqogxj6555-15-14 15:54:00* Test Item Value Reference Range Interpretation Comments Urine Ketones (test code = 14486-4) NEGATIVE NEGATIVE [facility] RenaissanceU[facility] Tscuybbublnq9936-32-21 15:54:00* Test Item Value Reference Range Interpretation Comments Urine Urobilinogen (test code = 87543-3) 0.2 0.2-1 [facility] RenaissanceU[facility] Wtqmdrjhm9352-43-36 15:54:00* Test Item Value Reference Range Interpretation Comments Urine Bilirubin (test code = 1977-8) NEGATIVE NEGATIVE [facility] RenaissanceU[facility] Hxiqr9527-36-55 15:54:00* Test Item Value Reference Range Interpretation Comments Urine Blood (test code = 11361-6) NEGATIVE NEGATIVE [facility] RenaissanceCreatine Kinase [id number] 15:16:00* Test Item Value Reference Range Interpretation Comments Creatine Kinase MB (test code = 01755-2) 1.50 0-5.0 [facility] RenaissanceTroponin [id number] 15:16:00* Test Item Value Reference Range Interpretation Comments Troponin I (test code = HPT1924) < 0.001 0-0.300 [facility] RenaissanceThyroid Stimulating Hormone (TSH) 2019-07-07 15:16:00* Test Item Value Reference Range Interpretation Comments Thyroid Stimulating Hormone (TSH) (test code = 53001-9) 4.807 0.350-4.940 [facility] RenaissanceCHEST SINGLE (PORTABLE)2019-07-07 15:06:00 [facility] [address] [place] [address] Patient Name: GABO INGRAM MR #: [id number] : 1950 Age/Sex: 69/F Req #: [id number] Adm Physician: Ordered by: YOLI ALVARENGA MD, MD Report #: [id number] Location: ER Room/Bed: Procedure: [id number] D X/CHEST SINGLE (PORTABLE) Exam Date: 07/07/19 [...] 1507 Transcribe d By: VINH on 07/07/19 7282 COPY TO: YOLI ALVARENGA B-Type Natriuretic Nffarpy6649-79-17 15:04:00* Test Item Value Reference Range Interpretation Comments B-Type Natriuretic Peptide (test code = 81918-1) 60.3 0-100 [facility] Yzqpi8849-29-38 14:57:00* Test Item Value Reference Range Interpretation Comments Sodium Level (test code = 2951-2) 139 136-145 [facility] RenaissancePotassium Qinvm1052-09-66 14:57:00* Test Item Value Reference Range Interpretation Comments Potassium Level (test code = 2823-3) 3.6 3.5-5.1 [facility] RenaissanceChloride Grdir4679-26-98 14:57:00* Test Item Value Reference Range Interpretation Comments Chloride Level (test code = 2075-0) 101 98-107 [facility] RenaissanceCarbon Dioxide Cyggf6749-13-40 14:57:00* Test Item Value Reference Range Interpretation Comments Carbon Dioxide Level (test code = 2028-9) 24 22-29 [facility] RenaissanceAnion Rjg8099-80-13 14:57:00* Test Item Value Reference Range Interpretation Comments Anion Gap (test code = 53540-7) 17.6 8-16 H [facility] RenaissanceBlood Urea Mbkbyoot3137-30-42 14:57:00* Test Item Value Reference Range Interpretation Comments Blood Urea Nitrogen (test code = 3094-0) 27 7-26 H [facility] RenaissanceCreatinine2019-11-27 14:57:00* Test Item Value Reference Range Interpretation Comments Creatinine (test code = 2160-0) 1.33 0.57-1.11 H [facility] RenaissanceBUN/Creatinine Aijxn9491-50-53 14:57:00* Test Item Value Reference Range Interpretation Comments BUN/Creatinine Ratio (test code = 3097-3) 20 6-25 [facility] RenaissanceEstimat Glomerular Filtration Rate 2019-07-07 14:57:00* Test Item Value Reference Range Interpretation Comments Estimat Glomerular Filtration Rate (test code = 450290759) 39 >60 L Ranges were taken from the National Kidney Disease Education Program and the [place] [facility] Kid[facility] Foundation literature.Reference ranges:60 or greater: Jiruah71-58 ( for 3 consecutive months): Chronic kidney disease 15 or less: Kidney failureDoctors Hospital at RenaissanceGlucose Jgvbb1075-21-76 14:57:00* Test Item Value Reference Range Interpretation Comments Glucose Level (test code = THL7453) 143 74-118 H [facility] RenaissanceCalcium Msfmb7411-95-25 14:57:00* Test Item Value Reference Range Interpretation Comments Calcium Level (test code = 73707-4) 9.6 8.4-10.2 [facility] RenaissanceMagnesium Vqizx3232-42-25 14:57:00* Test Item Value Reference Range Interpretation Comments Magnesium Level (test code = 88445-0) 1.7 1.3-2.1 [facility] Gostasbfs0346-63-38 14:57:00* Test Item Value Reference Range Interpretation Comments Total Bilirubin (test code = 1975-2) 0.3 0.2-1.2 [facility] Amino Transf (AST/SGOT) 2019-07-07 14:57:00* Test Item Value Reference Range Interpretation Comments Aspartate Amino Transf (AST/SGOT) (test code = Aspartate Amino Transf (AST/SGOT)) 15 5-34 [facility] Aminotransferase (ALT/SGPT) 2019-07-07 14:57:00* Test Item Value Reference Range Interpretation Comments Alanine Aminotransferase (ALT/SGPT) (test code = 1742-6) 12 0-55 [facility]Total Dcptdwo3094-58-02 14:57:00* Test Item Value Reference Range Interpretation Comments Total Protein (test code = 2885-2) 7.7 6.5-8.1 [facility]Albumin2019-11-27 14:57:00* Test Item Value Reference Range Interpretation Comments Albumin (test code = 1751-7) 3.4 3.5-5.0 L [facility]ulin2019-11-27 14:57:00* Test Item Value Reference Range Interpretation Comments Globulin (test code = 62706-6) 4.3 2.3-3.5 H [facility] RenaissanceAlbumin/Globulin Wfkvk7197-04-04 14:57:00 * Test Item Value Reference Range Interpretation Comments Albumin/Globulin Ratio (test code = 1759-0) 0.8 0.8-2.0 [facility]Alkaline Qqgmsssqhqu5415-26-18 14:57:00* Test Item Value Reference Range Interpretation Comments Alkaline Phosphatase (test code = 6768-6) 72 40-150 [facility] RenaissanceCreatine Fdqotc0140-15-10 14:57:00* Test Item Value Reference Range Interpretation Comments Creatine Kinase (test code = 2157-6) 57 29-168 [facility] RenaissanceProthrombin Hjgq0530-88-46 14:47:00* Test Item Value Reference Range Interpretation Comments Prothrombin Time (test code = 5902-2) 11.8 11.9-14.5 L [facility] RenaissanceProthromb Time International Ratio 2019-07-07 14:47:00* Test Item Value Reference Range Interpretation Comments Prothromb Time International Ratio (test code = 6301-6) 0.82 Oral Anticoagulant Therapy INR Values:1. Low Intensity Therapy 1.5 - 2.02 . Moderate Intensity Therapy 2.0 - 3.03. High Intensity Therapy(1) 2.5 - 3. 54. High Intensity Therapy(2) 3.0 - 4.05. Panic Value INR > 5.0 [facility] RenaissanceAct[facility] Partial Thromboplast Time 2019-07-07 14:47:00* Test Item Value Reference Range Interpretation Comments Activated Partial Thromboplast Time (test code = 24246-6) 25.2 23.8-35.5 [facility]White Blood Dqmvi4699-09-34 14:34:00* Test Item Value Reference Range Interpretation Comments White Blood Count (test code = 6690-2) 11.15 4.8-10.8 [facility] RenaissanceRed Blood Maasu1230-15-86 14:34:00* Test Item Value Reference Range Interpretation Comments Red Blood Count (test code = 789-8) 4.54 3.6-5.1 [facility]Hemoglobin2019-11-27 14:34:00* Test Item Value Reference Range Interpretation Comments Hemoglobin (test code = 69317-6) 13.0 12.0-16.0 [facility]Hematocrit2019-11-27 14:34:00* Test Item Value Reference Range Interpretation Comments Hematocrit (test code = 4544-3) 40.2 34.2-44.1 [facility]Mean Corpuscular Gyjpsk3698-92-21 14:34:00* Test Item Value Reference Range Interpretation Comments Mean Corpuscular Volume (test code = 787-2) 88.5 81-99 [facility]Mean Corpuscular Xhresiwzjb9060-12-34 14:34:00* Test Item Value Reference Range Interpretation Comments Mean Corpuscular Hemoglobin (test code = 785-6) 28.6 28-32 [facility]Mean Corpuscular Hemoglobin Concent 2019-07-07 14:34:00* Test Item Value Reference Range Interpretation Comments Mean Corpuscular Hemoglobin Concent (test code = 786-4) 32.3 31-35 [facility] RenaissanceRed Cell Distribution Tumdu9717-34-28 14:34:00* Test Item Value Reference Range Interpretation Comments Red Cell Distribution Width (test code = 48171-4) 13.0 11.7 -14.4 [facility] RenaissancePlatelet Elsdi3044-24-26 14:34:00* Test Item Value Reference Range Interpretation Comments Platelet Count (test code = 777-3) 313 140-360 [facility] RenaissanceNeutrophils (%) (Auto)2019-07-07 14:34:00 * Test Item Value Reference Range Interpretation Comments Neutrophils (%) (Auto) (test code = 17884-6) 59.1 38.7-80.0 [facility] RenaissanceLymphocytes (%) (Auto)2019-07-07 14:34:00 * Test Item Value Reference Range Interpretation Comments Lymphocytes (%) (Auto) (test code = 736-9) 34.7 18.0-39.1 [facility]Monocytes (%) (Auto)2019-07-07 14:34:00* Test Item Value Reference Range Interpretation Comments Monocytes (%) (Auto) (test code = 5905-5) 4.6 4.4-11.3 [facility]Eosinophils (%) (Auto)2019-07-07 14:34:00 * Test Item Value Reference Range Interpretation Comments Eosinophils (%) (Auto) (test code = 713-8) 0.8 0.0-6.0 [facility]ophils (%) (Auto)2019-07-07 14:34:00* Test Item Value Reference Range Interpretation Comments Basophils (%) (Auto) (test code = 706-2) 0.4 0.0-1.0 [facility] RenaissanceIM GRANULOCYTES %2019-07-07 14:34:00* Test Item Value Reference Range Interpretation Comments IM GRANULOCYTES % (test code = IM GRANULOCYTES %) 0.4 0.0- 1.0 [facility] RenaissanceNeutrophils # (Auto)2019-07-07 14:34:00* Test Item Value Reference Range Interpretation Comments Neutrophils # (Auto) (test code = 751-8) 6.6 2.1-6.9 [facility] RenaissanceLymphocytes # (Auto)2019-07-07 14:34:00* Test Item Value Reference Range Interpretation Comments Lymphocytes # (Auto) (test code = 08696-7) 3.9 1.0-3.2 H [facility] RenaissanceMonocytes # (Auto)2019-07-07 14:34:00* Test Item Value Reference Range Interpretation Comments Monocytes # (Auto) (test code = 742-7) 0.5 0.2-0.8 [facility] RenaissanceEosinophils # (Auto)2019-07-07 14:34:00* Test Item Value Reference Range Interpretation Comments Eosinophils # (Auto) (test code = 711-2) 0.1 0.0-0.4 [facility]Basophils # (Auto)2019-07-07 14:34:00* Test Item Value Reference Range Interpretation Comments Basophils # (Auto) (test code = 704-7) 0.1 0.0-0.1 [facility] RenaissanceAbsolute Immature Granulocyte (auto 2019-07-07 14:34:00* Test Item Value Reference Range Interpretation Comments Absolute Immature Granulocyte (auto (gennaro t code = Absolute Immature Granulocyte (auto) 0.05 0-0.1 [facility]CT [facility] L1664-09-05 09:49:00 [place] [address] Patient Name: GABO INGRAM MR #: [id number] : 1950 Age/Sex: 68/F Req #: [id number] [facility] Physician: Ordered by: ANABELLA DUENAS MD Report #: [id number] Location: ER Room/Bed: Procedure: [id number] CT/CT CHEST W Exam Date: Exam Time: [...] ANABELLA DUENAS MD CHEST SINGLE (PORTABLE)2018-06-20 09:22:00 [place] [address] Patient Name: GABO INGRAM MR #: [id number] : 1950 Age/Sex: 68/F Req #: [id number] Adm Physician: Ordered by: ANABELLA DUENAS MD Report #: [id number] Location: ER Room/Bed: Procedure: [id number] DX/CH EST SINGLE (PORTABLE) Exam Date: 06/20/18 [...] 9:23 AM Dictated By: FRANCIS MINAYA MD [facility] Signed By: FRANCIS MINAYA MD on 11/10/18 0923 Transcribed By: VINH on 06/20/18922 COPY TO: ANABELLA DUENAS MD HAND 3+ VIEWS RIGHT [place] [address] Patient Name: GABO INGRAM MR #: [id number] : Age/Sex: 67/F Req #: [id number] Adm Physician: Ordered by: ASHLEY RAE MD Report #: [id number] Location: ER Room/Bed : Procedure: [id number] DX/HAND 3+ VIEWS RIGHT Exam D ate: [...]
== END 2020-06-08 12:17 | disposition home or self-care (01) ==
LOC: FSED 10:31 → ERHOLD 10:51 → MED/SURG 12:21
PROVIDERS: ADMIT Internal Medicine; ATTEND Internal Medicine
DX: R07.2 Precordial pain (principal); I10 Essential (primary) hypertension; I25.2 Old myocardial infarction; Z88.5 Allergy status to narcotic agent; Z88.8 Allergy status to other drugs, medicaments and biological substances; I25.10 Atherosclerotic heart disease of native coronary artery without angina pectoris; Z82.49 Family history of ischemic heart disease and other diseases of the circulatory system; Z11.59 Encounter for screening for other viral diseases; Z86.19 Personal history of other infectious and parasitic diseases
CPT/HCPCS: 36415 ×2; 71045; 71275; 80048; 80061; 82150; 82550 ×2; 82553 ×2; 83690; 83735; 84443; 84484 ×2; 85025; 93005; 93306; 96361 ×2; 99284; G0378 ×2; J1885; J7030; J7050; Q9967; U0002; 96360

== ENCOUNTER → 2020-11-01 | Outpatient (CLI) | payer OTHER ==
[~2020-11-01] MED LIST changes: +COVID-19 VACC, MRNA(MODERNA)/PF 100 MCG/0.5 ML VIAL IM ONE; +ESTRADIOL1 MG PO
== END | disposition home or self-care (01) ==
LOC: VACCPMC 11:07
DX: Z23 Encounter for immunization (principal); Z20.822 Contact with and (suspected) exposure to COVID-19
CPT/HCPCS: 0011A; 91301

== ENCOUNTER → 2020-11-29 | Outpatient (CLI) | payer OTHER | END | disposition home or self-care (01) | LOC: VACCPMC 11:22 | DX: Z23 Encounter for immunization (principal); Z20.822 Contact with and (suspected) exposure to COVID-19 | CPT/HCPCS: 91301 ==

== ENCOUNTER 2022-04-23 05:04 | Emergency (ER) | payer MEDICARE, OTHER ==
[~2022-04-23] VITALS: Ht 312.4 cm; Wt 68.9 kg
[~2022-04-23 05:04] MED LIST changes: -COVID-19 VACC, MRNA(MODERNA)/PF 100 MCG/0.5 ML VIAL IM ONE
[2022-04-23] MEDS ORDERED: SODIUM CHLORIDE 0.9% 1000ML 1,000 ML IV STA (05:12)
[2022-04-23] MEDS ORDERED: Morphine 2mg Syringe 2 MG/ML SYR IV STA (05:12)
[2022-04-23] MEDS ORDERED: ONDANSETRON HCL INJ 2MG/ML 2ML 2 MG/ML VIAL IV STA (05:12)
[2022-04-23 05:25] LABS: BASOPHILS # (AUTO) 0.1 (0.0-0.1); BASOPHILS % 1.1 % (0.0-1.0); EOSINOPHILS # (AUTO) 0.2 (0.0-0.4); EOSINOPHILS % 3.5 % (0.0-6.0); HEMATOCRIT 43.7 % (34.2-44.1); HEMOGLOBIN 13.9 g/dL (12.0-16.0); LYMPHOCYTES # (AUTO) 2.6 (1.0-3.2); LYMPHOCYTES % 45.7 % (18.0-39.1); MEAN CORPUSCULAR HEMOGLOBIN 28.4 pg (28-32); MEAN CORPUSCULAR HGB CONC 31.8 g/dL (31-35); MEAN CORPUSCULAR VOLUME 89.4 fL (81-99); MONOCYTES # (AUTO) 0.4 (0.2-0.8); MONOCYTES % 7.4 % (4.4-11.3); NEUTROPHILS # (AUTO) 2.4 (2.1-6.9); NEUTROPHILS % 42.1 % (38.7-80.0); PLATELET COUNT 238 x10e3/uL (140-360); RED BLOOD COUNT 4.89 x10e6/uL (3.6-5.1); RED CELL DISTRIBUTION WIDTH 12.5 % (11.7-14.4)
[2022-04-23 05:37] LABS: INR 0.87; PARTIAL THROMBOPLASTIN TIME 27.3 seconds (23.8-35.5); PROTHROMBIN TIME 12.6 seconds (11.9-14.5)
[2022-04-23] MEDS ORDERED: DIPHENHYDRAMINE HCL INJ 50 MG/ML VIAL IV ONE (05:45)
[2022-04-23] MEDS ORDERED: METOCLOPRAMIDE HCL 10 MG/2ML VIAL IV ONE (05:45)
[2022-04-23 05:46] LABS: ALBUMIN 3.8 g/dL (3.5-5.0); ALBUMIN/GLOBULIN RATIO 1.1 (0.8-2.0); ANION GAP 16.6 mmol/L (8-16); CREATININE, SERUM 0.92 mg/dL (0.57-1.11); POTASSIUM 3.6 mmol/L (3.5-5.1)
[2022-04-23 05:53] LABS: CREATINE KINASE MB 1.3 ng/mL (0-5.0)
[2022-04-23 06:15] LABS: INFLUENZAE A&B ANTIGEN (RAPID) NEGATIVE (NEGATIVE); RESPIRATORY SYNC. VIRUS NEGATIVE (NEGATIVE)
[2022-04-23] MEDS ORDERED: ENALAPRILAT IV INJ 1.25 MG/ML VIAL IV STA (06:24)
[2022-04-23] MEDS ORDERED: KETOROLAC TROMETHAMINE 30 MG/ML VIAL IV STA (06:26)
[2022-04-23] MEDS ORDERED: KETOROLAC TROMETHAMINE 30 MG/ML VIAL ONE (06:40)
[2022-04-23 06:50] VITALS: BP 178/84
[2022-04-23] MEDS ORDERED: ONDANSETRON ODT4 MG PO (06:57)
[2022-04-23] MEDS ORDERED: FIORICET 50-301 EACH PO (06:57)
== END 2022-04-23 07:00 | disposition home or self-care (01) ==
LOC: ER 05:17
DX: R51.9 Headache, unspecified (principal); I10 Essential (primary) hypertension; I25.2 Old myocardial infarction; Z90.49 Acquired absence of other specified parts of digestive tract; Z87.891 Personal history of nicotine dependence; Z88.5 Allergy status to narcotic agent; Z88.8 Allergy status to other drugs, medicaments and biological substances; Z20.822 Contact with and (suspected) exposure to COVID-19
CPT/HCPCS: 36415; 70450; 71046; 80053; 82550; 82553; 84484; 85025; 85610; 85730; 87400; 87420; 93005; 99284; J1200; J1885; J2270; J2405; J2765; J7030; U0002

== ENCOUNTER 2025-03-15 01:29 | Emergency (ER) | payer MEDICARE ==
[~2025-03-15] VITALS: Ht 160 cm; Wt 69.4 kg
[~2025-03-15 01:29] MED LIST changes: +FIORICET 50-301 EACH PO; +METHOCARBAMOL500 MG PO; +ONDANSETRON ODT4 MG PO
[2025-03-15 01:30] VITALS: PULSE 89; RESP 16; TEMP 99.1
[2025-03-15 02:42] LABS: CORONAVIRUS COVID-19 AG NEGATIVE (NEGATIVE)
[2025-03-15] MEDS: ACETAMINOPHEN 325 MG TAB PO ONE (03:31)
[2025-03-15 03:52] LABS: LEUKOCYTE ESTERASE ,URINE NEGATIVE (NEGATIVE); PROTEIN,URINE DIPSTICK 1+ (NEGATIVE)
[2025-03-15 03:53] LABS: URINE UROBILINOGEN 0.2 mg/dL (0.2 - 1)
[2025-03-15 04:04] LABS: EPITHELIAL CELLS,URINE FEW /LPF; WBC,URINE (MAN) 0-5 /HPF (0-5)
[2025-03-15] MEDS ORDERED: CEFDINIR300 MG PO (04:11)
[2025-03-15] MEDS ORDERED: ONDANSETRON ODT4 MG PO (04:11)
[2025-03-15 04:35] VITALS: BP 146/74; PULSE 75; RESP 18; O2SAT 95
== END 2025-03-15 04:37 | disposition home or self-care (01) ==
LOC: ER 01:31
DX: R50.9 Fever, unspecified (principal); N39.0 Urinary tract infection, site not specified; I10 Essential (primary) hypertension; Z11.52 Encounter for screening for COVID-19; I25.2 Old myocardial infarction; Z87.19 Personal history of other diseases of the digestive system; Z98.0 Intestinal bypass and anastomosis status
CPT/HCPCS: 71045; 81001; 87086; 99283

== ENCOUNTER → 2025-04-21 | Outpatient (REF) | payer MEDICARE ==
[~2025-04-21] MED LIST changes: +CEFDINIR300 MG PO; +LISINOPRIL-HCT1 EAC2 PO; +REGADENOSON 0.4 MG/5 ML SYR IV ONE
== END ==
LOC: NM 08:10
PROVIDERS: ATTEND Internal Medicine Cardiovascular Disease
DX: R06.02 Shortness of breath (principal); R94.39 Abnormal result of other cardiovascular function study; Z86.79 Personal history of other diseases of the circulatory system
CPT/HCPCS: 78452; 93017; A9502; J2785

== ENCOUNTER 2025-04-27 10:56 | Inpatient (IN) | payer MEDICARE ==
[2025-04-20 11:35] LABS: BASOPHILS % 0.8 % (0.0-1.0); EOSINOPHILS % 2.3 % (0.0-6.0); LYMPHOCYTES % 31.7 % (18.0-39.1); MONOCYTES % 6.9 % (4.4-11.3); NEUTROPHILS % 58.1 % (38.7-80.0); RED CELL DISTRIBUTION WIDTH 13.2 % (11.7-14.4)
[2025-04-20 11:45] LABS: EST GLOMERULAR FILTRATION RATE 62.0 ML/MIN (>=60)
[~2025-04-27] VITALS: Ht 160 cm; Wt 66.2 kg
[~2025-04-27 10:56] MED LIST changes: -REGADENOSON 0.4 MG/5 ML SYR IV ONE
[2025-04-27] MEDS: SODIUM CHLORIDE 0.9% 1000ML 1,000 ML ONE (11:37)
[2025-04-27] MEDS: PIPERACILLIN/TAZOBACTAM 3.375 GM VIAL ONE (11:40)
[2025-04-27] MEDS: GENTAMICIN 80MG/NS 100 ML 200 ML IV ONE (11:42)
[2025-04-27] MEDS ORDERED: FENTANYL CITRATE/PF 100MCG/2 ML INJ ONE (13:11)
[2025-04-27] MEDS ORDERED: PROPOFOL IV EMULSION 10 MG/ML 20 ML VIAL ONE (13:12)
[2025-04-27] MEDS ORDERED: LIDOCAINE HCL 2% LOCAL INJ 5 ML SDV VIAL INJ ONE (13:12)
[2025-04-27] MEDS: SCOPOLAMINE 1 MG PATCH ONE (13:25)
[2025-04-27] MEDS ORDERED: DIPHENHYDRAMINE HCL 25 MG CAP PO PRN (13:30)
[2025-04-27] MEDS ORDERED: ACETAMINOPHEN/CODEINE 300MG - 30MG TAB PO PRN (13:30)
[2025-04-27] MEDS ORDERED: DEXAMETHASONE SOD PHOS INJ 4 MG/ML SDV ONE (13:33)
[2025-04-27] MEDS ORDERED: FAMOTIDINE 20 MG/2 ML VIAL IV ONE (13:33)
[2025-04-27] MEDS: ONDANSETRON HCL INJ 2MG/ML 2ML 2 MG/ML VIAL ONE (15:35)
[2025-04-27] MEDS: METOCLOPRAMIDE HCL 10 MG/2ML VIAL ONE (15:35)
[2025-04-27 15:53] LABS: BASOPHILS % 0.6 % (0.0-1.0); EOSINOPHILS % 1.3 % (0.0-6.0); LYMPHOCYTES % 19.1 % (18.0-39.1); MONOCYTES % 2.4 % (4.4-11.3); NEUTROPHILS % 76.3 % (38.7-80.0); RED CELL DISTRIBUTION WIDTH 13.1 % (11.7-14.4)
[2025-04-27 16:13] LABS: EST GLOMERULAR FILTRATION RATE 74.0 ML/MIN (>=60)
[2025-04-27 17:00] VITALS: BP 147/71; PULSE 65; RESP 16; TEMP 97; O2SAT 99
[2025-04-27] MEDS: D5.45%NS/KCL 20MEQ 1,000 ML IV SCH (17:23)
[2025-04-27] MEDS: SENNA-S TABLET PO SCH (17:23)
[2025-04-27 17:40] VITALS: PULSE 68; RESP 18; O2SAT 100
[2025-04-27 19:27] VITALS: PULSE 64; RESP 18; O2SAT 98
[2025-04-27 20:00] VITALS: BP 128/57; PULSE 70; RESP 17; TEMP 97.9; O2SAT 100
[2025-04-27] MEDS: ACETAMINOPHEN 1000 MG/100 ML IV PRN (23:42)
[2025-04-28] VITALS (9 sets, daily range): BP systolic 125–146; BP diastolic 53–66; PULSE 62–82; RESP 17–19; TEMP 97.7–98.7; O2SAT 96–100
[2025-04-28] MEDS: PHENAZOPYRIDINE HCL 100 MG TAB PO PRN (02:51)
[2025-04-28] MEDS: ONDANSETRON HCL INJ 2MG/ML 2ML 2 MG/ML VIAL IV PRN (04:15)
[2025-04-28] MEDS: TRAMADOL HCL 50 MG TAB PO PRN (04:16)
[2025-04-28 05:54] LABS: BASOPHILS % 0.1 % (0.0-1.0); EOSINOPHILS % 0.0 % (0.0-6.0); LYMPHOCYTES % 6.1 % (18.0-39.1); MONOCYTES % 4.3 % (4.4-11.3); NEUTROPHILS % 89.1 % (38.7-80.0); RED CELL DISTRIBUTION WIDTH 13.2 % (11.7-14.4)
[2025-04-28 06:21] LABS: EST GLOMERULAR FILTRATION RATE 65.0 ML/MIN (>=60)
[2025-04-29] VITALS (7 sets, daily range): BP systolic 124–162; BP diastolic 59–74; PULSE 65–78; RESP 17–19; TEMP 98.1–99; O2SAT 96–99
[2025-04-29] MEDS: MAGNESIUM SULFATE 2GM/50ML 50 ML IV ONE (04:52)
[2025-04-29 06:25] LABS: BASOPHILS % 0.8 % (0.0-1.0); EOSINOPHILS % 0.8 % (0.0-6.0); LYMPHOCYTES % 29.4 % (18.0-39.1); MONOCYTES % 6.2 % (4.4-11.3); NEUTROPHILS % 62.5 % (38.7-80.0); RED CELL DISTRIBUTION WIDTH 13.4 % (11.7-14.4)
[2025-04-29 07:03] LABS: EST GLOMERULAR FILTRATION RATE 52.0 ML/MIN (>=60)
== END 2025-04-29 16:38 | disposition home or self-care (01) | DRG 748 ==
LOC: OR 10:56 → PACU V 15:07 → MED/SURG2 16:30
PROVIDERS: ADMIT Internal Medicine; ATTEND Internal Medicine
PROC: 0T9B8ZZ Drainage of Bladder, Via Natural or Artificial Opening Endoscopic (ICD-10-PCS; 2025-04-27)
PROC: BT141ZZ Fluoroscopy of Kidneys, Ureters and Bladder using Low Osmolar Contrast (ICD-10-PCS; 2025-04-27)
PROC: 0JUC0KZ Supplement of Pelvic Region Subcutaneous Tissue and Fascia with Nonautologous Tissue Substitute, Open Approach (ICD-10-PCS; principal; 2025-04-27 13:24)
DX: N81.3 Complete uterovaginal prolapse (principal); D62 Acute posthemorrhagic anemia; N32.89 Other specified disorders of bladder; I10 Essential (primary) hypertension; R10.9 Unspecified abdominal pain; D72.829 Elevated white blood cell count, unspecified; E83.42 Hypomagnesemia; Z87.440 Personal history of urinary (tract) infections
CPT/HCPCS: 36415; 74420; 80048; 80053; 83735; 85025; 93005; 94799; C1762; J1100; J1308; J1580; J2003; J2405; J2543; J2765; J3475; J7030

== ENCOUNTER 2025-05-08 15:16 | Emergency (ER) | payer MEDICARE ==
[~2025-05-08] VITALS: Ht 160 cm; Wt 65.8 kg
[2025-05-08 16:39] LABS: BASOPHILS % 0.4 % (0.0-1.0); EOSINOPHILS % 0.9 % (0.0-6.0); LYMPHOCYTES % 8.9 % (18.0-39.1); MONOCYTES % 4.6 % (4.4-11.3); NEUTROPHILS % 84.9 % (38.7-80.0); RED CELL DISTRIBUTION WIDTH 14.0 % (11.7-14.4)
[2025-05-08 16:43] LABS: INR 0.96
[2025-05-08 16:53] LABS: EST GLOMERULAR FILTRATION RATE 67.0 ML/MIN (>=60)
[2025-05-08] MEDS ORDERED: IOPAMIDOL 370 MG/ML 100 ML INFUS..BTL INJ ONE (17:04)
[2025-05-08] MEDS ORDERED: METRONIDAZOLE500 MG PO (18:54)
[2025-05-08] MEDS ORDERED: LEVOFLOXACIN750 MG PO (18:54)
[2025-05-08 19:00] VITALS: PULSE 83; RESP 17; TEMP 98.7
[2025-05-08 19:01] VITALS: BP 162/78; PULSE 85; RESP 16; TEMP 98.7; O2SAT 100
== END 2025-05-08 19:08 | disposition home or self-care (01) ==
LOC: ER 16:07
DX: N99.841 Postprocedural hematoma of a genitourinary system organ or structure following other procedure (principal); R10.12 Left upper quadrant pain; I10 Essential (primary) hypertension; I48.91 Unspecified atrial fibrillation; I25.2 Old myocardial infarction; Z98.0 Intestinal bypass and anastomosis status; Z87.19 Personal history of other diseases of the digestive system
CPT/HCPCS: 36415; 71046; 74177; 80053; 83690; 85025; 85610; 85730; 87040; 87086; 87186; 99284; Q9967

== ENCOUNTER 2025-05-12 15:18 | Inpatient (IN) | payer MEDICARE ==
[~2025-05-12] VITALS: Ht 160 cm; Wt 71.7 kg
[~2025-05-12 15:18] MED LIST changes: +LEVOFLOXACIN750 MG PO; +METRONIDAZOLE500 MG PO
[2025-05-12] MEDS: SODIUM CHLORIDE 0.9% 1000ML 1,000 ML IV ONE (17:19)
[2025-05-12] MEDS: ONDANSETRON HCL INJ 2MG/ML 2ML 2 MG/ML VIAL IV STA (17:19)
[2025-05-12 17:41] LABS: BASOPHILS % 0.8 % (0.0-1.0); EOSINOPHILS % 4.7 % (0.0-6.0); LYMPHOCYTES % 23.8 % (18.0-39.1); MONOCYTES % 8.3 % (4.4-11.3); NEUTROPHILS % 61.9 % (38.7-80.0); RED CELL DISTRIBUTION WIDTH 13.8 % (11.7-14.4)
[2025-05-12 18:03] LABS: EST GLOMERULAR FILTRATION RATE 71.0 ML/MIN (>=60)
[2025-05-12] MEDS ORDERED: IOPAMIDOL 370 MG/ML 100 ML INFUS..BTL INJ ONE (18:14)
[2025-05-12] MEDS ORDERED: METOCLOPRAMIDE HCL 10 MG/2ML VIAL IV PRN (18:30)
[2025-05-12] MEDS: Morphine 2mg Syringe 2 MG/ML SYR IV ONE (18:48)
[2025-05-12 18:56] VITALS: PULSE 82; RESP 17; TEMP 98.2
[2025-05-12] MEDS: SODIUM CHLORIDE 0.9% 1000ML 1,000 ML IV SCH (19:50)
[2025-05-12 20:30] VITALS: BP 165/69; PULSE 98; RESP 20; TEMP 98.5; O2SAT 100
[2025-05-12 20:31] VITALS: BP 165/69; PULSE 98; RESP 20; TEMP 98.5; O2SAT 100
[2025-05-12 21:00] VITALS: BP 165/69; PULSE 98; RESP 20; TEMP 98.5; O2SAT 100
[2025-05-12] MEDS: ONDANSETRON HCL INJ 2MG/ML 2ML 2 MG/ML VIAL IV PRN (22:33)
[2025-05-13] VITALS (11 sets, daily range): BP systolic 133–159; BP diastolic 63–88; PULSE 70–89; RESP 17–18; TEMP 97.9–98.7; O2SAT 96–100
[2025-05-13] MEDS ORDERED: POTASSIUM CHLORIDE 20 MEQ TAB CR PO PRN (01:00)
[2025-05-13] MEDS ORDERED: HYDRALAZINE HCL 20 MG/ML VIAL IV PRN (01:00)
[2025-05-13] MEDS ORDERED: BENZONATATE 100 MG CAP PO PRN (01:00)
[2025-05-13] MEDS ORDERED: DOCUSATE SODIUM 100 MG CAP PO PRN (01:00)
[2025-05-13] MEDS ORDERED: LIDOCAINE 4% PATCH TP PRN (01:00)
[2025-05-13] MEDS ORDERED: ACETAMINOPHEN 325 MG TAB PO PRN (01:00)
[2025-05-13] MEDS ORDERED: MELATONIN 5 MG TABLET PO PRN (01:00)
[2025-05-13] MEDS ORDERED: DEXTROSE 50% SYRINGE 50 ML IV PRN (01:00)
[2025-05-13] MEDS ORDERED: ALBUTEROL/IPRATROPIUM 3 ML NEB NEB PRN (01:00)
[2025-05-13] MEDS ORDERED: HYDROCODONE/APAP 5MG-325MG TAB PO PRN (01:00)
[2025-05-13] MEDS ORDERED: SIMETHICONE 80 MG CHEW PO PRN (01:00)
[2025-05-13] MEDS ORDERED: DIPHENHYDRAMINE HCL 25 MG CAP PO PRN (01:00)
[2025-05-13 06:55] LABS: BASOPHILS % 0.8 % (0.0-1.0); EOSINOPHILS % 5.4 % (0.0-6.0); LYMPHOCYTES % 30.0 % (18.0-39.1); MONOCYTES % 8.4 % (4.4-11.3); NEUTROPHILS % 54.9 % (38.7-80.0); RED CELL DISTRIBUTION WIDTH 13.9 % (11.7-14.4)
[2025-05-13 07:12] LABS: EST GLOMERULAR FILTRATION RATE 85.0 ML/MIN (>=60)
[2025-05-13 07:39] LABS: PHOSPHORUS 2.5 MG/DL (2.3-4.7)
[2025-05-13] MEDS: PANTOPRAZOLE SOD 40 MG TABEC PO SCH (08:50)
[2025-05-13] MEDS: LISINOPRIL 10 MG TAB PO SCH (08:51)
[2025-05-13] MEDS ORDERED: MEROPENEM 1 GM in SODIUM CHLORIDE 0.9% 100 ML IV SCH (12:00)
[2025-05-13] MEDS: SODIUM CHLORIDE 0.9% 1000ML 1,000 ML IV SCH (13:26)
[2025-05-14 04:00] VITALS: BP 127/69; PULSE 79; RESP 18; TEMP 98.1; O2SAT 98
[2025-05-14 06:24] VITALS: PULSE 76; RESP 20; O2SAT 95
[2025-05-14 06:33] LABS: BASOPHILS % 0.8 % (0.0-1.0); EOSINOPHILS % 6.3 % (0.0-6.0); LYMPHOCYTES % 28.9 % (18.0-39.1); MONOCYTES % 9.1 % (4.4-11.3); NEUTROPHILS % 54.1 % (38.7-80.0); RED CELL DISTRIBUTION WIDTH 14.2 % (11.7-14.4)
[2025-05-14 07:30] LABS: EST GLOMERULAR FILTRATION RATE 82.0 ML/MIN (>=60)
[2025-05-14 08:00] VITALS: BP 114/61; PULSE 70; RESP 17; RESP 20; TEMP 97.9; O2SAT 95; O2SAT 98
[2025-05-14 12:00] VITALS: BP 130/67; PULSE 78; RESP 17; TEMP 98.1; O2SAT 99
== END 2025-05-14 16:33 | disposition home or self-care (01) | DRG 392 ==
LOC: ER 15:55 → ERHOLD 18:25 → MED/SURG3 20:18 → OBSVTOIN 05-13 17:45
PROVIDERS: ADMIT Internal Medicine; ATTEND Internal Medicine
DX: A08.4 Viral intestinal infection, unspecified (principal); N39.0 Urinary tract infection, site not specified; K91.871 Postprocedural hematoma of a digestive system organ or structure following other procedure; B96.5 Pseudomonas (aeruginosa) (mallei) (pseudomallei) as the cause of diseases classified elsewhere; E86.0 Dehydration; N93.9 Abnormal uterine and vaginal bleeding, unspecified; I10 Essential (primary) hypertension; I25.10 Atherosclerotic heart disease of native coronary artery without angina pectoris; Z90.710 Acquired absence of both cervix and uterus; Z79.899 Other long term (current) drug therapy; Z79.2 Long term (current) use of antibiotics; Y83.8 Other surgical procedures as the cause of abnormal reaction of the patient, or of later complication, without mention of misadventure at the time of the procedure; Y92.009 Unspecified place in unspecified non-institutional (private) residence as the place of occurrence of the external cause
CPT/HCPCS: 36415; 74177; 80048; 80053; 82948; 83690; 83735; 84100; 85025; 94799; 99284; G0378; J2185; J2405; J2470; J7030; Q9967